=== PATIENT | female | born 1955 | race Caucasian/White ===

== ENCOUNTER 2018-03-20 15:39 | Emergency (ER) | payer OTHER ==
[~2018-03-20] VITALS: Ht 154.9 cm; Wt 63.5 kg
--- OUTSIDE RECORDS SUMMARY | 2018-03-20 15:43 | XMS REPORT | Summary of Care ---
Author Organization Unknown Address Unknown Phone Unavailable Encounter JOE Jeter(THOMAS) [id number] Date(s): 06/01/14 - 06/02/14 [facility] [address] [place], [place] [id number] [place] [address] Discharge Diagnosis: Avascular necrosis of femur head, left Discharge Diagnosis: Depression Discharge Disposition: Home Physician Attending: Venancio Hodge MD Reason for Visit HIP PAIN DUE TO FALL Vital Signs 1 2 3 Most recent to oldest [Reference Range]: 154.94 cm (06/01/14 10:00 PM) Height 97.5 DegF (06/02/14 7:38 AM) 98.4 DegF (06/02/14 4:30 AM) 98.5 DegF (06/02/14 2:30 AM) Temperature Oral [96.4-99.1 DegF] 112 mmHg (06/02/14 7:38 AM) 107 mmHg (06/02/14 4:30 AM) 115 mmHg (06/02/14 3:30 AM) Systolic Blood Pressure [90-140 mmHg] 67 mmHg (06/02/14 7:38 AM) 67 mmHg (06/02/14 4:30 AM) 69 mmHg (06/02/14 3:30 AM) Diastolic Blood Pressure [60-90 mmHg] 20 BRMIN (06/02/14 7:38 AM) 18 BRMIN (06/02/14 4:30 AM) 18 BRMIN (06/02/14 3:30 AM) Respiratory Rate [14-20 BRMIN] 98 bpm (06/02/14 7:38 AM) 102 bpm *HI* (06/02/14 4:30 AM) 102 bpm *HI* (06/02/14 3:30 AM) Peripheral Pulse Rate [60-100 bpm] 58.182 kg (06/01/14 10:00 PM) Weight 24.24 m2 (06/01/14 10:00 PM) Body Mass Index Problem List Condition Effective Dates Status Health Status Informant Back pain(Confirmed) Active Fibromyalgia(Confirm Active ed) Hip pain(Confirmed) Active Scabies(Confirmed) Resolved Allergies, Adverse Reactions, Alerts Substance Reaction Severity Status Flexeril Active Medications Ativan 1 mg, 1 tab, Route: PO, Drug form: TAB, ONCE, Dosing Weight 58.182, kg, Priority : STAT, Start date: 06/01/14 22:29:00, Stop date: 06/01/14 22:29:00 Notes: (Same as: Ativan) Start Date: 06/01/14 Stop Date: 06/02/14 Status: Completed NS 1,000 mL 1,000 mL, Rate: 100 ml/hr, Infuse over: 10 hr, Route: IV, Dosing Weight 58.182 k g, Total Volume: 1,000, Start date: 06/01/14 22:29:00, Duration: 30 day, Stop da te: 07/01/14 22:28:00 Start Date: 06/01/14 Stop Date: 06/02/14 Status: Discontinued Ultram 50 mg oral tablet 50 mg=1 tab, PO, Q4H, pain, # 20 tab, 0 Refill(s) Start Date: 06/02/14 Status: Ordered Results ELECTROLYTES Most recent to 1 oldest [Reference Range]: Sodium Lvl [135-145 138 mEq/L mEq/L] (06/02/14 12:07 AM) Potassium Lvl 4.0 mEq/L [3.5-5.1 mEq/L] (06/02/14 12:07 AM) Chloride Lvl [95-109 105 mEq/L mEq/L] (06/02/14 12:07 AM) CO2 [24-32 mEq/L] 29 mEq/L (06/02/14 12:07 AM) AGAP [10.0-20.0 8.0 mEq/L mEq/L] *LOW* (06/02/14 12:07 AM) CHEM PANEL Most recent to 1 oldest [Reference Range]: Creatinine Lvl 0.9 mg/dL [0.5-1.4 mg/dL] (06/02/14 12:07 AM) eGFR 71 mL/min/1.73m2 1 *NA* (06/02/14:07 AM) BUN [7-22 mg/dL] 10 mg/dL (06/02/14 12:07 AM) B/C Ratio [6-25] 11 (06/02/14:07 AM) Glucose Lvl [70-99 100 mg/dL 2 mg/dL] *HI* (06/02/14 AM) Total Protein 7.1 g/dL [6.4-8.4 g/dL] (06/02/1407 AM) Albumin Lvl [3.5-5.0 3.4 g/dL g/dL] *LOW* (06/02/14 AM) Globulin [2.0-4.0 3.7 g/dL g/dL] (06/02/14:07 AM) A/G Ratio [0.7-1.6] 0.9 (06/02/1407 AM) Calcium Lvl 9.1 mg/dL [8.5-10.5 mg/dL] (06/02/14:07 AM) ALT [0-65 unit/L] 23 unit/L (06/02/14:07 AM) AST [0-37 unit/L] 20 unit/L (06/02/14:07 AM) Alk Phos [39-136 91 unit/L unit/L] (06/02/14:07 AM) Bili Total [0.2-1.3 0.8 mg/dL mg/dL] (06/02/14 12:07 AM) 1Result Comment: The eGFR is calculated using the CKD-EPI formula. In most young, healthy individuals the eGFR will be >90 mL/min/1.73m2. The eGFR declines with age. An eGFR of 60-89 may be normal in some populations, particularly the elderly, for whom the CKD-EPI formula has not been extensively validated. Use of the eGFR is not recommended in the following populations: Individuals with unstable creatinine concentrations, including patients and those with serious co-morbid conditions. Patients with extremes in muscle mass or diet. The data above are obtained from the National Kidney Disease Education Program ( NKDEP) which additionally recommends that when the eGFR is used in patients with extremes of body mass index for purposes of drug dosing, the eGFR should be mul tiplied by the estimated BMI. 2Interpretive Data: Adult reference range values reflect the clinical guidelines of the [place] [employer]. THYROID PANEL Most recent to 1 oldest [Reference Range]: TSH [0.360-3.740 1.090 uIU/mL uIU/mL] (06/02/14 12:07 AM) DRUG SCREEN Most recent to 1 oldest [Reference Range]: U Amph Scr Positive [Negative] *ABN* (06/02/14 6:59 AM) U Keerthi Scr Negative [Negative] *NA* (06/02/14 6:59 AM) U Benzodia Scr Positive [Negative] *ABN* (06/02/14 6:59 AM) U Cocaine Scr Negative [Negative] *NA* (06/02/14 6:59 AM) U Opiate Scr Negative [Negative] *NA* (06/02/14 6:59 AM) U Phencyc Scr Negative [Negative] *NA* (06/02/14 6:59 AM) U Cannab Scr Negative [Negative] *NA* (06/02/14 6:59 AM) UDS Note See Note 3 (06/02/14 6:59 AM) 3Interpretive Data: Drugs reported as positive have not been confirmed by a second method and should be used for medical purposes only. To order confirmation, contact laboratory. note: Below are cut-off concentrations for all urine drugs of abuse performed in the laboratory. Some drugs listed in the table may not be included in this panel. Description Cut-off concentration Amphetamine 1000 ng/mL Barbiturates 200 ng/mL Benzodiazepines 300 ng/mL Cocaine metabolites 300 ng/mL Opiates 300 ng/mL Phencyclidine 25 ng/mL Propoxyphene 300 ng/mL Marijuana metabolites 50 ng/mL Methadone 300 ng/mL Urine alcohol 20 mg/dL TOXICOLOGY Most recent to 1 oldest [Reference Range]: Etoh (%) <.003 % 4 *NA* (06/02/14 12:07 AM) Ethanol Lvl <3 mg/dL 5 *NA* (06/02/14 12:07 AM) 4Interpretive Data: Ethanol testing results should be used for medical purposes only. Negative Range: <0.003% Toxic Range: >0.25% 5Interpretive Data: Negative Range: <3 mg/dL Toxic Range: >250 mg/dL URINE AND STOOL Most recent to 1 oldest [Reference Range]: UA Turbidity [Clear] Clear (06/02/14 6:59 AM) UA Color [Yellow] Yellow *NA* (06/02/14 6:59 AM) UA pH [5.0-8.0] 6.5 (06/02/14 6:59 AM) UA Spec Grav 1.015 [<=1.030] (06/02/14 6:59 AM) UA Glucose Negative [Negative] (06/02/14 6:59 AM) UA Blood [Negative] Trace *ABN* (06/02/14 6:59 AM) UA Ketones Negative [Negative] *NA* (06/02/14 6:59 AM) UA Protein Negative [Negative] (06/02/14 6:59 AM) UA Urobilinogen 0.2 EU/dL [0.1-1.0 EU/dL] (06/02/14 6:59 AM) UA Bili [Negative] Negative *NA* (06/02/14 6:59 AM) UA Leuk Est Negative [Negative] (06/02/14 6:59 AM) UA Nitrite Negative [Negative] (06/02/14 6:59 AM) UA WBC [0-5 /HPF] 0-2 /HPF (06/02/14 6:59 AM) UA RBC [0-2 /HPF] 0-2 /HPF (06/02/14 6:59 AM) UA Bacteria [None Occasional /HPF Seen /HPF] (06/02/14 6:59 AM) UA Sq Epi [Few /LPF] Occasional /LPF (06/02/14 6:59 AM) Micro? Performed (06/02/14 6:59 AM) HEMATOLOGY Most recent to 1 oldest [Reference Range]: WBC [3.7-10.4 K/CMM] 12.3 K/CMM *HI* (06/02/14 12:07 AM) RBC [4.20-5.40 4.39 M/CMM M/CMM] (06/02/14:07 AM) Hgb [12.0-16.0 g/dL] 14.0 g/dL (06/02/1407 AM) Hct [36.0-48.0 %] 41.8 % (06/02/14 AM) MCV [80.0-98.0 fL] 95.0 fL (06/02/14 AM) MCH [27.0-31.0 pg] 31.9 pg *HI* (06/02/14 AM) MCHC [32.0-36.0 33.6 g/dL g/dL] (06/02/14 AM) RDW [11.5-14.5 %] 14.0 % (06/02/14 AM) Platelet [133-450 253 K/CMM K/CMM] (06/02/1407 AM) MPV [7.4-10.4 fL] 8.5 fL (06/02/1407 AM) Segs [45.0-75.0 %] 69.4 % (06/02/14:07 AM) Lymphocytes 14.1 % [20.0-40.0 %] *LOW* (06/02/14 AM) Monocytes [2.0-12.0 9.3 % %] (06/02/1407 AM) Eosinophils [0.0-4.0 6.4 % %] *HI* (06/02/14: AM) Basophils [0.0-1.0 0.8 % %] (06/02/14:07 AM) Segs-Bands # 8.5 K/CMM [1.5-8.1 K/CMM] *HI* (06/02/14:07 AM) Lymphocytes # 1.7 K/CMM [1.0-5.5 K/CMM] (06/02/14 12:07 AM) Monocytes # [0.0-0.8 1.1 K/CMM K/CMM] *HI* (06/02/14:07 AM) Eosinophils # 0.8 K/CMM [0.0-0.5 K/CMM] *HI* (06/02/14 12:07 AM) Basophils # [0.0-0.2 0.1 K/CMM K/CMM] (06/02/14 12:07 AM) Medications Administered During Your Visit No data available for this section Immunizations No data available for this section Social History Social History Type Response Alcohol Use: Current, Type: Beer, Type: Wine, Type: Liquor, Frequency: 1-2 times per month Smoking Status Current every day smoker, Type: Cigarettes, Exposure to Tobacco Smoke Patient smokes, Cigarette Smoking Last 365 Days Yes, Reg Smoking Cessation Counseling Yes
--- OUTSIDE RECORDS SUMMARY | 2018-03-20 15:43 | XMS REPORT | Summary of Care ---
Author Organization Unknown Address Unknown Phone Unavailable Encounter JOE Jeter(THOMAS) [id number] Date(s): 02/23/14 - 02/23/14 [facility] [address] [place], [place] [id number] [place] [address] Discharge Diagnosis: Acute anxiety Discharge Diagnosis: Chronic left hip pain Discharge Disposition: Home Physician Attending: Venancio Hodge MD Reason for Visit LEFT SIDED HIP PAIN/FALL Vital Signs Most recent to 1 2 oldest [Reference Range]: Height 162.56 cm (02/23/14 3:58 AM) Temperature Oral 98.5 DegF 98.4 DegF [96.4-99.1 DegF] (02/23/14 7:20 AM) (02/23/14 3:58 AM) Systolic Blood 120 mmHg 116 mmHg Pressure [90-140 (02/23/14 7:20 AM) (02/23/14 3:58 AM) mmHg] Diastolic Blood 34 mmHg 82 mmHg Pressure [60-90 *LOW* (02/23/14 3:58 AM) mmHg] (02/23/14 7:20 AM) Respiratory Rate 18 BRMIN 20 BRMIN [14-20 BRMIN] (02/23/14 7:20 AM) (02/23/14 3:58 AM) Peripheral Pulse 86 bpm 93 bpm Rate [60-100 bpm] (02/23/14 7:20 AM) (02/23/14 3:58 AM) Weight 59.091 kg (02/23/14 3:58 AM) Body Mass Index 22.36 m2 (02/23/14 3:58 AM) Problem List Condition Effective Dates Status Health Status Informant Back pain(Confirmed) Active Fibromyalgia(Confirm Active ed) Hip pain(Confirmed) Active Scabies(Confirmed) Resolved Allergies, Adverse Reactions, Alerts Substance Reaction Severity Status Flexeril Active Medications ketorolac 60 mg, Route: IM, Drug form: INJ, ONCE, Dosing Weight 59.091, kg, Priority: STAT , Start date: 02/23/14 7:01:00, Stop date: 02/23/14 7:01:00 Start Date: 02/23/14 Stop Date: 02/23/14 Status: Completed morphine Sulfate 4 mg, Route: IVP, Drug form: INJ, ONCE, Dosing Weight 59.091, kg, Priority: STAT , Start date: 02/23/14 4:51:00, Stop date: 02/23/14 4:51:00 Start Date: 02/23/14 Stop Date: 02/23/14 Status: Discontinued Medications Administered During Your Visit No data [...]
--- OUTSIDE RECORDS SUMMARY | 2018-03-20 15:43 | XMS REPORT | Summary of Care ---
Author Organization Unknown Address Unknown Phone Unavailable Encounter JOE Jeter(THOMAS) [id number] Date(s): 12/20/13 - 12/21/13 [facility] [address] [place], [place] [address] - [facility] Discharge Diagnosis: Chronic left hip pain Discharge Disposition: Home Physician Attending: Alex Connelly MD Reason for Visit PAIN Vital Signs Most recent to 1 2 oldest [Reference Range]: Temperature Oral 98.3 DegF 98.3 DegF [96.4-99.1 DegF] (12/21/13 3:10 AM) (12/20/13 10:43 PM) Systolic Blood 132 mmHg 128 mmHg Pressure [90-140 (12/21/13 3:10 AM) (12/20/13 10:43 PM) mmHg] Diastolic Blood 65 mmHg 75 mmHg Pressure [60-90 (12/21/13 3:10 AM) (12/20/13 10:43 PM) mmHg] Respiratory Rate 18 BRMIN 22 BRMIN [14-20 BRMIN] (12/21/13 3:10 AM) *HI* (12/20/13 10:43 PM) Peripheral Pulse 88 bpm 90 bpm Rate [60-100 bpm] (12/21/13 3:10 AM) (12/20/13 10:43 PM) Weight 56.818 kg (12/20/13 10:43 PM) Problem List Condition Effective Dates Status Health Status Informant Back pain(Confirmed) Resolved Fibromyalgia(Confirm Resolved ed) Hip pain(Confirmed) Resolved Scabies(Confirmed) Resolved Allergies, Adverse Reactions, Alerts Substance Reaction Severity Status Flexeril Active Medications morphine Sulfate 4 mg, Route: IM, ONCE, Dosing Weight 56.818, kg, Priority: STAT, Start date: 07/31 2:14:00, Stop date: 12/21/13 2:14:00 Start Date: 12/21/13 Stop Date: 12/21/13 Status: Completed Rake 10/325 oral tablet 1 tab, PO, Q6H, for pain, # 12 tab, 0 Refill(s) Start Date: 12/21/13 Status: Ordered Medications Administered During Your Visit No data [...]
--- OUTSIDE RECORDS SUMMARY | 2018-03-20 15:43 | XMS REPORT | Summary of Care ---
Author Author [facility] Organization [facility] Address Unknown Phone Unavailable Encounter HQ Steffany(THOMAS) [id number] Date(s): 07/29/15 - 07/31/15 [facility] [address] [place] [address]- Discharge Disposition: Home Attending Physician: Clifford Cervantes Admitting Physician: Clifford Cervantes Vital Signs 1 2 3 Most recent to oldest [Reference Range]: 155 cm (07/29/15 4:18 PM) 154.94 cm (07/29/15 7:36 AM) Height 98.2 DegF (07/31/15 7:49 AM) 97.8 DegF (07/31/15 4:00 AM) 98.0 DegF (07/31/15 12:00 AM) Temperature Oral [96.4-99.1 DegF] 104/66 mmHg (07/31/15 7:49 AM) 107/71 mmHg (07/31/15 4:00 AM) 113/70 mmHg (07/31/15 12:00 AM) Blood Pressure [90-140/60-90 mmHg] 16 BRMIN (07/31/15 7:49 AM) 16 BRMIN (07/31/15 4:00 AM) 16 BRMIN (07/31/15 12:00 AM) Respiratory Rate [14-20 BRMIN] 74 bpm (07/31/15 7:49 AM) 72 bpm (07/31/15 4:00 AM) 72 bpm (07/31/15 12:00 AM) Peripheral Pulse Rate [60-100 bpm] 49.5 kg (07/29/15 4:18 PM) 49.545 kg (07/29/15 7:36 AM) Weight 20.6 m2 (07/29/15 4:18 PM) 20.64 m2 (07/29/15 7:36 AM) Body Mass Index Problem List Condition Effective Dates Status Health Status Informant Arthritis(Confirmed) Resolved Back pain(Confirmed) Active Diverticula(Confirme Resolved d) Fibromyalgia(Confirm Active ed) Hip pain(Confirmed) Active Scabies(Confirmed) Resolved Allergies, Adverse Reactions, Alerts Substance Reaction Severity Status Flexeril Active Medications acetaminophen-hydrocodone 325 mg-5 mg oral tablet 1 tab, Route: PO, Drug Form: TAB, Dosing Weight 49.545, kg, Q4H, PRN Pain Score 4-6, Start date: 07/29/15 14:43:00 CDT, Duration: 30 day, Stop date: 08/28/15 14 :42:00 CDT Notes: (Same as: [place] 325/5) Do not exceed 4gm/day of acetaminophen. Start Date: 07/29/15 Stop Date: 07/31/15 Status: Discontinued Ambien 5 mg, 1 tab, Route: PO, Drug form: TAB, Bedtime, Dosing Weight 49.5, kg, PRN Sle ep, Start date: 07/31/15 7:41:00 CDT, Duration: 30 day, Stop date: 08/30/15 7:40 :00 CDT Notes: (Same As: Ambien) Start Date: 07/31/15 Stop Date: 07/31/15 Status: Discontinued Dilaudid 0.5 mg, Route: IVP, ONCE, Dosing Weight 49.545, kg, Priority: STAT, Start date: 07/29/15 12:04:00 CDT, Stop date: 07/29/15 12:04:00 CDT Start Date: 07/29/15 Stop Date: 07/29/15 Status: Completed Dilaudid 0.5 mg, Route: IVP, ONCE, Dosing Weight 49.545, kg, Priority: STAT, Start date: 07/29/15 9:43:00 CDT, Stop date: 07/29/15 9:43:00 CDT Start Date: 07/29/15 Stop Date: 07/29/15 Status: Completed Lyrica 125 mg, 5 cap, Route: PO, Drug form: CAP, BID, Dosing Weight 49.5, kg, Start lakisha e: 07/31/15 9:00:00 CDT, Duration: 30 day, Stop date: 08/29/15 21:00:00 CDT Notes: (Same as: Lyrica) Start Date: 07/31/15 Stop Date: 07/31/15 Status: Discontinued morphine Sulfate 4 mg, 2 mL, Route: IVP, Drug form: INJ, Q4H, Dosing Weight 49.545, kg, PRN Pain Score 7-10, Start date: 07/29/15 14:43:00 CDT, Duration: 30 day, Stop date: 08/17 05/04 14:42:00 CDT Notes: (Same as:MORPhine Sulfate) Start Date: 07/29/15 Stop Date: 07/31/15 Status: Discontinued nicotine 21 mg, 1 patch, Route: TOP, Drug form: ERFILM, Daily, Dosing Weight 49.545, kg, Start date: 07/30/15 14:55:00 CDT, Duration: 30 day, Stop date: 08/29/15 9:00:00 CDT Notes: (Same as: Habitrol)"Remove old patch before application of new patch"WAST E: F/P - P Waste Black; E - P Waste Black Start Date: 07/30/15 Stop Date: 07/31/15 Status: Discontinued ondansetron 4 mg, 2 mL, Route: IVP, Drug form: INJ, Q6H, Dosing Weight 49.545, kg, PRN Nause a & Vomiting, Start date: 07/29/15 14:43:00 CDT, Duration: 30 day, Stop date: 08/28/15 14:42:00 CDT Notes: (Same as: Rosanna) MEDICATION WASTE Product Size: 4 mgProduct Was chelo: ___ mg Start Date: 07/29/15 Stop Date: 07/31/15 Status: Discontinued oxyCODONE 10 mg extended release 10 mg, 1 tab, Route: PO, Drug form: ERTAB, Q12H, Start date: 07/31/15 9:00:00 CD T, Duration: 30 day, Stop date: 08/29/15 21:00:00 CDT Notes: Do not crush or chew.(Same as: OxyContin) Start Date: 07/31/15 Stop Date: 07/31/15 Status: Discontinued oxyCODONE 10 mg oral tablet 10 mg=1 tab, PO, BID, 0 Refill(s) Start Date: 07/29/15 Status: Ordered pneumococcal 23-valent vaccine 0.5 mL, Route: IM, Drug Form: INJ, ONCALL, Start date: 07/29/15 17:00:00 CDT, Chinedu ration: 1 doses or times Notes: (Same as: Pneumovax 23) Refrigerate Start Date: 07/29/15 Stop Date: 07/31/15 Status: Discontinued Results ELECTROLYTES Most recent to 1 oldest [Reference Range]: Sodium Lvl [135-145 141 mEq/L mEq/L] (07/29/15 8:02 AM) Potassium Lvl 3.9 mEq/L [3.5-5.1 mEq/L] (07/29/15 8:02 AM) Chloride Lvl [95-109 108 mEq/L mEq/L] (07/29/15 8:02 AM) CO2 [24-32 mEq/L] 29 mEq/L (07/29/15 8:02 AM) AGAP [10.0-20.0 7.9 mEq/L mEq/L] *LOW* (07/29/15 8:02 AM) CHEM PANEL Most recent to 1 oldest [Reference Range]: Creatinine Lvl 0.72 mg/dL [0.50-1.40 mg/dL] (07/29/15 8:02 AM) eGFR 92 mL/min/1.73m2 1 *NA* (07/29/15 8:02 AM) BUN [7-22 mg/dL] 6 mg/dL *LOW* (07/29/15 8:02 AM) B/C Ratio [6-25] 8 (07/29/15 8:02 AM) Glucose Lvl [70-99 101 mg/dL mg/dL] *HI* (07/29/15 8:02 AM) Total Protein 6.7 g/dL [6.4-8.4 g/dL] (07/29/15 8:02 AM) Albumin Lvl [3.5-5.0 3.5 g/dL g/dL] (07/29/15 8:02 AM) Globulin [2.0-4.0 3.2 g/dL g/dL] (07/29/15 8:02 AM) A/G Ratio [0.7-1.6] 1.1 (07/29/15 8:02 AM) Calcium Lvl 8.9 mg/dL [8.5-10.5 mg/dL] (07/29/15 8:02 AM) ALT [0-65 unit/L] 15 unit/L (07/29/15 8:02 AM) AST [0-37 unit/L] 13 unit/L (07/29/15 8:02 AM) Alk Phos [39-136 76 unit/L unit/L] (07/29/15 8:02 AM) Bili Total [0.2-1.3 0.9 mg/dL mg/dL] (07/29/15 8:02 AM) 1Result Comment: The eGFR is calculated [...] be mul tiplied by the estimated BMI. URINE AND STOOL Most recent to 1 oldest [Reference Range]: UA Turbidity [Clear] Clear (07/29/15 9:39 AM) UA Color Ltyellow *NA* (07/29/15 9:39 AM) UA pH [5.0-8.0] 7.0 (07/29/15 9:39 AM) UA Spec Grav 1.004 [<=1.030] (07/29/15 9:39 AM) UA Glucose [Negative Negative mg/dL mg/dL] *NA* (07/29/15 9:39 AM) UA Blood [Negative] Negative (07/29/15 9:39 AM) UA Ketones [Negative Negative mg/dL mg/dL] *NA* (07/29/15 9:39 AM) UA Protein [Negative Negative mg/dL mg/dL] (07/29/15 9:39 AM) UA Urobilinogen <=1.0 mg/dL [0.1-1.0 mg/dL] *NA* (07/29/15 9:39 AM) UA Bili [Negative] Negative *NA* (07/29/15 9:39 AM) UA Leuk Est Negative [Negative] (07/29/15 9:39 AM) UA Nitrite Negative [Negative] (07/29/15 9:39 AM) UA WBC [0-5 /HPF] 1 /HPF (07/29/15 9:39 AM) UA RBC [0-2 /HPF] <1 /HPF (07/29/15 9:39 AM) UA Bacteria [None Occasional /HPF Seen /HPF] *NA* (07/29/15 9:39 AM) UA Sq Epi [Few /LPF] Occasional /LPF *NA* (07/29/15 9:39 AM) HEMATOLOGY Most recent to 1 oldest [Reference Range]: WBC [3.7-10.4 K/CMM] 4.7 K/CMM (07/29/15 8:02 AM) RBC [4.20-5.40 4.16 M/CMM M/CMM] *LOW* (07/29/15 8:02 AM) Hgb [12.0-16.0 g/dL] 13.9 g/dL (07/29/15 8:02 AM) Hct [36.0-48.0 %] 42.1 % (07/29/15 8:02 AM) MCV [80.0-98.0 fL] 101.1 fL *HI* (07/29/15 8:02 AM) MCH [27.0-31.0 pg] 33.3 pg *HI* (07/29/15 8:02 AM) MCHC [32.0-36.0 32.9 g/dL g/dL] (07/29/15 8:02 AM) RDW [11.5-14.5 %] 13.4 % (07/29/15 8:02 AM) Platelet [133-450 259 K/CMM K/CMM] (07/29/15 8:02 AM) MPV [7.4-10.4 fL] 9.1 fL (07/29/15 8:02 AM) Segs [45.0-75.0 %] 53.6 % (07/29/15 8:02 AM) Lymphocytes 36.9 % [20.0-40.0 %] (07/29/15 8:02 AM) Monocytes [2.0-12.0 7.4 % %] (07/29/15 8:02 AM) Eosinophils [0.0-4.0 1.9 % %] (07/29/15 8:02 AM) Basophils [0.0-1.0 0.2 % %] (07/29/15 8:02 AM) Segs-Bands # 2.5 K/CMM [1.5-8.1 K/CMM] (07/29/15 8:02 AM) Lymphocytes # 1.7 K/CMM [1.0-5.5 K/CMM] (07/29/15 8:02 AM) Monocytes # [0.0-0.8 0.3 K/CMM K/CMM] (07/29/15 8:02 AM) Eosinophils # 0.1 K/CMM [0.0-0.5 K/CMM] (07/29/15 8:02 AM) Macrocyte [None 1+ Seen] *ABN* (07/29/15 8:02 AM) Immunizations No data available for this section Procedures No data available for this section Social History Social History Type Response Alcohol Current, Type Beer, Wine, Liquor. Frequency: 1-2 times per month. Smoking Status Current every day smoker; Type: Cigarettes; Tobacco use per day: .5; Exposure to Tobacco Smoke Patient smokes; Cigarette Smoking Last 365 Days Yes; Reg Smoking Cessation Counseling Yes Assessment and Plan No data available for this section
--- OUTSIDE RECORDS SUMMARY | 2018-03-20 15:43 | XMS REPORT | Summary of Care ---
Author Author [facility] Organization [facility] Address Unknown Phone Unavailable Encounter JOE Jeter(THOMAS) [id number] Date(s): 07/23/15 - 07/24/15 [facility] [address] [place] [address]- Discharge Diagnosis: Avascular necrosis of hip Discharge Diagnosis: Abdominal pain Discharge Diagnosis: Diverticulosis Discharge Disposition: Home Attending Physician: Jennifer Garcia DO Vital Signs 1 2 3 Most recent to oldest [Reference Range]: 154.94 cm (07/23/15 10:56 PM) Height 98.2 DegF (07/24/15 5:34 AM) 98.2 DegF (07/24/15 4:46 AM) 98 DegF (07/24/15 2:14 AM) Temperature Oral [96.4-99.1 DegF] 116/82 mmHg (07/24/15 5:34 AM) 118/84 mmHg (07/24/15 4:46 AM) 120/82 mmHg (07/24/15 2:14 AM) Blood Pressure [90-140/60-90 mmHg] 18 BRMIN (07/24/15 5:34 AM) 18 BRMIN (07/24/15 4:46 AM) 18 BRMIN (07/24/15 2:14 AM) Respiratory Rate [14-20 BRMIN] 84 bpm (07/24/15 5:34 AM) 86 bpm (07/24/15 4:46 AM) 86 bpm (07/24/15 2:14 AM) Peripheral Pulse Rate [60-100 bpm] 50 kg (07/23/15 10:56 PM) Weight 20.83 m2 (07/23/15 10:56 PM) Body Mass Index Problem List Condition Effective Dates Status Health Status Informant Back pain(Confirmed) Active Fibromyalgia(Confirm Active ed) Hip pain(Confirmed) Active Scabies(Confirmed) Resolved Allergies, Adverse Reactions, Alerts Substance Reaction Severity Status Flexeril Active Medications morphine Sulfate 2 mg, 1 mL, Route: IVP, Drug form: INJ, ONCE, Dosing Weight 50, kg, Priority: ST AT, Start date: 07/24/15 4:42:00, Stop date: 07/24/15 4:42:00 Notes: (Same as:MORPhine Sulfate) Start Date: 07/24/15 Stop Date: 07/24/15 Status: Completed morphine Sulfate 4 mg, 2 mL, Route: IVP, Drug form: INJ, ONCE, Dosing Weight 50, kg, Priority: ST AT, Start date: 07/24/15 0:55:00, Stop date: 07/24/15 0:55:00 Notes: (Same as:MORPhine Sulfate) Start Date: 07/24/15 Stop Date: 07/24/15 Status: Completed Saline Flush 0.9% 10 mL, Route: IVP, Drug Form: INJ, Dosing Weight 58.182, kg, PRN, PRN Line Flush , Start date: 07/23/15 22:57:00, Duration: 30 day, Stop date: 08/22/15 22:56:00 Notes: (Same as: BD Posiflush) Start Date: 07/23/15 Stop Date: 07/24/15 Status: Discontinued Sodium Chloride 0.9% (Bolus) IV 1,000 mL, 1,000 ml/hr, Infuse Over: 1 hr, Route: IV, 1,000, Drug form: INJ, ONCE , Priority: STAT, Dosing Weight 50 kg, Start date: 07/24/15 0:55:00, Duration: 1 doses or times, Stop date: 07/24/15 0:55:00 Start Date: 07/24/15 Stop Date: 07/24/15 Status: Completed Tylenol with Codeine #3 oral tablet 1 - 2 tab, PO, Q4H, PRN Pain, X 3 day, # 20 tab, 0 Refill(s) Start Date: 07/24/15 Stop Date: 07/27/15 Status: Ordered Results ELECTROLYTES Most recent to 1 oldest [Reference Range]: Sodium Lvl [135-145 142 mEq/L mEq/L] (07/24/15 12:09 AM) Potassium Lvl 3.9 mEq/L [3.5-5.1 mEq/L] (07/24/15 12:09 AM) Chloride Lvl [95-109 107 mEq/L mEq/L] (07/24/15 12:09 AM) CO2 [24-32 mEq/L] 31 mEq/L (07/24/15 12:09 AM) AGAP [10.0-20.0 7.9 mEq/L mEq/L] *LOW* (07/24/1509 AM) CHEM PANEL Most recent to 1 oldest [Reference Range]: Creatinine Lvl 0.57 mg/dL [0.50-1.40 mg/dL] (07/24/15 12:09 AM) eGFR 102 mL/min/1.73m2 1 *NA* (07/24/15:09 AM) BUN [7-22 mg/dL] 9 mg/dL (07/24/15 12:09 AM) B/C Ratio [6-25] 16 (07/24/15 12:09 AM) Glucose Lvl [70-99 88 mg/dL mg/dL] (07/24/15 12:09 AM) Total Protein 5.8 g/dL [6.4-8.4 g/dL] *LOW* (07/24/15 12:09 AM) Albumin Lvl [3.5-5.0 3.0 g/dL g/dL] *LOW* (07/24/15:09 AM) Globulin [2.0-4.0 2.8 g/dL g/dL] (07/24/15 12:09 AM) A/G Ratio [0.7-1.6] 1.1 (07/24/15 12:09 AM) Calcium Lvl 8.8 mg/dL [8.5-10.5 mg/dL] (07/24/15 12:09 AM) ALT [0-65 unit/L] 16 unit/L (07/24/15 12:09 AM) AST [0-37 unit/L] 15 unit/L (07/24/15 12:09 AM) Alk Phos [39-136 68 unit/L unit/L] (07/24/15 12:09 AM) Bili Total [0.2-1.3 0.3 mg/dL mg/dL] (07/24/15 12:09 AM) Lipase Lvl [73-393 66 unit/L unit/L] *LOW* (07/24/15 12:09 AM) 1Result Comment: The eGFR is calculated [...] 1 oldest [Reference Range]: UA Turbidity [Clear] Slight *ABN* (07/24/15 2:26 AM) UA Color Ltyellow *NA* (07/24/15 2:26 AM) UA pH [5.0-8.0] 6.0 (07/24/15 2:26 AM) UA Spec Grav 1.009 [<=1.030] (07/24/15 2:26 AM) UA Glucose [Negative Negative mg/dL mg/dL] *NA* (07/24/15 2:26 AM) UA Blood [Negative] Negative (07/24/15 2:26 AM) UA Ketones [Negative Negative mg/dL mg/dL] *NA* (07/24/15 2:26 AM) UA Protein [Negative Negative mg/dL mg/dL] (07/24/15 2:26 AM) UA Urobilinogen <=1.0 mg/dL [0.1-1.0 mg/dL] *NA* (07/24/15 2:26 AM) UA Bili [Negative] Negative *NA* (07/24/15 2:26 AM) UA Leuk Est Moderate [Negative] *ABN* (07/24/15 2:26 AM) UA Nitrite Negative [Negative] (07/24/15 2:26 AM) UA WBC [0-5 /HPF] 13 /HPF *HI* (07/24/15 2:26 AM) UA RBC [0-2 /HPF] 9 /HPF *HI* (07/24/15 2:26 AM) UA Sq Epi [Few /LPF] Many /LPF *ABN* (07/24/15 2:26 AM) UA Hyal Cast [0-2 3 /LPF /LPF] *HI* (07/24/15 2:26 AM) HEMATOLOGY Most recent to 1 oldest [Reference Range]: WBC [3.7-10.4 K/CMM] 6.5 K/CMM (07/24/15 12:09 AM) RBC [4.20-5.40 3.77 M/CMM M/CMM] *LOW* (07/24/15 12:09 AM) Hgb [12.0-16.0 g/dL] 12.4 g/dL (07/24/15 12:09 AM) Hct [36.0-48.0 %] 38.6 % (07/24/15 12:09 AM) MCV [80.0-98.0 fL] 102.3 fL *HI* (07/24/15 12:09 AM) MCH [27.0-31.0 pg] 32.9 pg *HI* (07/24/15 12:09 AM) MCHC [32.0-36.0 32.2 g/dL g/dL] (07/24/15 12:09 AM) RDW [11.5-14.5 %] 14.0 % (07/24/15 12:09 AM) Platelet [133-450 212 K/CMM K/CMM] (07/24/15 12:09 AM) MPV [7.4-10.4 fL] 8.8 fL (07/24/15 12:09 AM) Segs [45.0-75.0 %] 44.8 % *LOW* (07/24/15 12:09 AM) Lymphocytes 43.2 % [20.0-40.0 %] *HI* (07/24/15 12:09 AM) Monocytes [2.0-12.0 9.5 % %] (07/24/15 12:09 AM) Eosinophils [0.0-4.0 1.9 % %] (07/24/15 12:09 AM) Basophils [0.0-1.0 0.6 % %] (07/24/15 12:09 AM) Segs-Bands # 2.9 K/CMM [1.5-8.1 K/CMM] (07/24/15 12:09 AM) Lymphocytes # 2.8 K/CMM [1.0-5.5 K/CMM] (07/24/15 12:09 AM) Monocytes # [0.0-0.8 0.6 K/CMM K/CMM] (07/24/15 12:09 AM) Eosinophils # 0.1 K/CMM [0.0-0.5 K/CMM] (07/24/15 12:09 AM) Macrocyte [None 1+ Seen] *ABN* (07/24/15 12:09 AM) Immunizations No data available for this [...]
--- OUTSIDE RECORDS SUMMARY | 2018-03-20 15:43 | XMS REPORT | Summary of Care ---
Author Organization Unknown Address Unknown Phone Unavailable Encounter JOE Jeter(THOMAS) [id number] Date(s): 11/26/13 - 11/26/13 [facility] [address] [place], [place] [address] - [facility] Discharge Diagnosis: Hip pain, chronic Discharge Disposition: Home Physician Attending: Jordan Rodriguez MD Reason for Visit LEFT HIP AND LOWER BACK PAIN Vital Signs 1 2 3 Most recent to oldest [Reference Range]: 165.1 cm (11/26/13 3:27 PM) Height 98.7 DegF (11/26/13 5:51 PM) 98.7 DegF (11/26/13 3:27 PM) Temperature Oral [96.4-99.1 DegF] 122 mmHg (11/26/13 7:03 PM) 120 mmHg (11/26/13 5:51 PM) 128 mmHg (11/26/13 3:27 PM) Systolic Blood Pressure [90-140 mmHg] 72 mmHg (11/26/13 7:03 PM) 71 mmHg (11/26/13 5:51 PM) 82 mmHg (11/26/13 3:27 PM) Diastolic Blood Pressure [60-90 mmHg] 16 BRMIN (11/26/13 7:03 PM) 16 BRMIN (11/26/13 5:51 PM) 18 BRMIN (11/26/13 3:27 PM) Respiratory Rate [14-20 BRMIN] 90 bpm (11/26/13 7:03 PM) 96 bpm (11/26/13 5:51 PM) 108 bpm *HI* (11/26/13 3:27 PM) Peripheral Pulse Rate [60-100 bpm] 59.091 kg (11/26/13 3:27 PM) Weight 21.68 m2 (11/26/13 3:27 PM) Body Mass Index Problem List Condition Effective Dates Status Health Status Informant Back pain(Confirmed) Resolved Hip pain(Confirmed) Resolved Scabies(Confirmed) Resolved Allergies, Adverse Reactions, Alerts Substance Reaction Severity Status Flexeril Active Medications Dilaudid 0.5 mg, 0.5 mL, Route: IM, Drug form: INJ, ONCE, Dosing Weight 59.091, kg, Prior ity: STAT, Start date: 11/26/13 17:56:00, Stop date: 11/26/13 17:56:00 Start Date: 11/26/13 Stop Date: 11/26/13 Status: Completed Dilaudid 0.5 mg, Route: IVP, ONCE, Dosing Weight 59.091, kg, Priority: STAT, Start date: 11/26/13 17:47:00, Stop date: 11/26/13 17:47:00 Start Date: 11/26/13 Stop Date: 11/26/13 Status: Discontinued [place] 10/325 oral tablet 1-2 tab, PO, Q4-6H, Pain, # 10 tab, 0 Refill(s) Start Date: 11/26/13 Stop Date: 12/01/13 Status: Ordered Medications Administered During Your Visit [...]
--- OUTSIDE RECORDS SUMMARY | 2018-03-20 15:43 | XMS REPORT | Summary of Care ---
Author Organization Unknown Address Unknown Phone Unavailable Encounter JOE Jeter(THOMAS) [id number] Date(s): 11/05/13 - 11/09/13 [facility] [id number] [place], [place] [id number] [place] [address] Discharge Disposition: Home Physician Attending: Daniele Andersen DO Physician Admitting: Daniele Andersen DO Reason for Visit L3 COMPRESSION FRACTURE, AVASCULAR NECROSIS OF L HIP Vital Signs 1 2 3 Most recent to oldest [Reference Range]: 154.94 cm (11/05/13 6:09 AM) Height 97.5 DegF (11/09/13 8:00 AM) 97.9 DegF (11/09/13 4:11 AM) 97.7 DegF (11/09/13 12:07 AM) Temperature Oral [96.4-99.1 DegF] 104 mmHg (11/09/13 8:00 AM) 95 mmHg (11/09/13 4:11 AM) 99 mmHg (11/09/13 12:07 AM) Systolic Blood Pressure [90-140 mmHg] 70 mmHg (11/09/13 8:00 AM) 56 mmHg *LOW* (11/09/13 4:11 AM) 59 mmHg *LOW* (11/09/13 12:07 AM) Diastolic Blood Pressure [60-90 mmHg] 18 BRMIN (11/09/13 8:00 AM) 16 BRMIN (11/09/13 4:11 AM) 14 BRMIN (11/09/13 12:07 AM) Respiratory Rate [14-20 BRMIN] 73 bpm (11/09/13 8:00 AM) 73 bpm (11/09/13 4:11 AM) 73 bpm (11/09/13 12:07 AM) Peripheral Pulse Rate [60-100 bpm] 62.727 kg (11/05/13 6:09 AM) Weight 26.13 m2 (11/05/13 6:09 AM) Body Mass Index Problem List Condition Effective Dates Status Health Status Informant Back pain(Confirmed) Resolved Hip pain(Confirmed) Resolved Scabies(Confirmed) Resolved Allergies, Adverse Reactions, Alerts Substance Reaction Severity Status Flexeril Active Medications acetaminophen 650 mg, 20.3 mL, Route: PO, Drug form: LIQ, Q4H, kg, PRN Pain 1-3/Temp > 100.4 F, Start date: 11/05/13 6:09:00, Duration: 30 day, Stop date: 12/05/13 6:08:00 Notes: Max msyuewpnshhgx=5917ci/day (4 gm/day). (Same as: Tylenol) Start Date: 11/05/13 Stop Date: 11/09/13 Status: Discontinued acetaminophen-hydrocodone 325 mg-10 mg oral tablet 1 tab, Route: PO, Drug Form: TAB, kg, Q4H, PRN Pain Score 4-6, Start date: 11/05 6:09:00, Duration: 30 day, Stop date: 12/05/13 6:08:00 Notes: Do not exceed 4gm/day of acetaminophen. (Same as: [place] 325/10) Start Date: 11/05/13 Stop Date: 11/09/13 Status: Discontinued acetaminophen-hydrocodone 325 mg-10 mg oral tablet 1 tab, PO, Q6H, Pain Score 4-6, # 120 tab, 0 Refill(s), given to patient Start Date: 11/09/13 Status: Ordered acetaminophen-hydrocodone 325 mg-5 mg oral tablet 1 tab, Route: PO, Drug Form: TAB, kg, Q4H, PRN Pain Score 1-3, Start date: 11/05 6:09:00, Duration: 30 day, Stop date: 12/05/13 6:08:00 Notes: (Same as: [place] 325/5) Do not exceed 4gm/day of acetaminophen. Start Date: 11/05/13 Stop Date: 11/06/13 Status: Discontinued Ambien 5 mg, 1 tab, Route: PO, Drug form: TAB, Bedtime, kg, PRN Insomnia, Start date: 0 11/05/13 5:28:00, Duration: 30 day, Stop date: 12/05/13 5:27:00 Notes: (Same As: Ambien) Start Date: 11/05/13 Stop Date: 11/09/13 Status: Discontinued Ambien 5 mg, Route: PO, Drug form: TAB, Bedtime, Dosing Weight 62.727, kg, PRN as neede d for sleep, Start date: 11/07/13 10:32:00, Duration: 30 day, Stop date: 4 10:31:00 Start Date: 11/07/13 Stop Date: 11/07/13 Status: Deleted Ambien 5 mg oral tablet 5 mg=1 tab, PO, Bedtime, for sleep, 0 Refill(s) Start Date: 11/06/13 Status: Ordered Ativan 1 mg, Route: IVP, Drug form: INJ, ONCE, Dosing Weight 62.727, kg, PRN Anxiety, P riority: NOW, Start date: 11/05/13 15:33:00 Start Date: 11/05/13 Stop Date: 11/05/13 Status: Completed Benadryl 25 mg, 1 tab, Route: PO, Drug form: TAB, Q6H, Dosing Weight 62.727, kg, PRN as n eeded for itching, Start date: 11/05/13 20:21:00, Duration: 30 day, Stop date: 0 12/05/13 20:20:00 Start Date: 11/05/13 Stop Date: 11/06/13 Status: Discontinued clonazePAM 1 mg, 2 tab, Route: PO, Drug form: TAB, TID, Dosing Weight 62.727, kg, Start lakisha e: 11/09/13 9:00:00, Duration: 30 day, Stop date: 12/08/13 17:00:00 Notes: (Same As: KlonoPIN) Start Date: 11/09/13 Stop Date: 11/09/13 Status: Discontinued clonazePAM 2 mg, 4 tab, Route: PO, Drug form: TAB, TID, Dosing Weight 62.727, kg, Start lakisha e: 11/07/13 13:00:00, Duration: 30 day, Stop date: 12/07/13 9:00:00 Notes: (Same As: KlonoPIN) Start Date: 11/07/13 Stop Date: 11/08/13 Status: Discontinued clonazePAM 2 mg oral tablet 2 mg=1 tab, PO, TID, 0 Refill(s) Start Date: 11/06/13 Status: Ordered cloNIDine 0.1 mg oral tablet 0.1 mg, 1 tab, Route: PO, Drug form: TAB, Q8H, kg, PRN See Nurse's Notes, Start date: 11/05/13 5:28:00, Duration: 30 day, Stop date: 12/05/13 5:27:00, SBP >160 Notes: (Same As: Catapres) Start Date: 11/05/13 Stop Date: 11/09/13 Status: Discontinued Dilaudid 0.2 mg, 0.2 mL, Route: IV, Drug form: INJ, Q4H, Dosing Weight 62.727, kg, PRN Pa in Score 7-10, Start date: 11/06/13 17:24:00, Duration: 30 day, Stop date: 12/06 17:23:00 Start Date: 11/06/13 Stop Date: 11/07/13 Status: Discontinued Dilaudid 1 mg, Route: IM, ONCE, kg, Start date: 11/05/13 2:44:00, Stop date: 11/05/13 2:4 4:00 Start Date: 11/05/13 Stop Date: 11/05/13 Status: Completed docusate 100 mg, 1 cap, Route: PO, Drug form: CAP, BID, kg, PRN Constipation, Start date: 11/05/13 6:09:00, Duration: 30 day, Stop date: 12/05/13 6:08:00 Notes: (Same as: Colace) (Do Not Crush) Start Date: 11/05/13 Stop Date: 11/09/13 Status: Discontinued docusate sodium 100 mg oral capsule 100 mg=1 cap, PO, BID, Constipation, # 60 cap, 0 Refill(s) Start Date: 11/09/13 Status: Ordered FLUoxetine 20 mg oral capsule 20 mg=1 cap, PO, Daily, # 30 cap, 0 Refill(s) Start Date: 11/09/13 Status: Ordered hydrOXYzine 25 mg, 1 tab, Route: PO, Drug form: TAB, QID, Dosing Weight 62.727, kg, PRN Itch ing, Start date: 11/06/13 9:08:00, Duration: 30 day, Stop date: 12/06/13 9:07:00 Notes: (Same as: Atarax) Avoid alcohol. Start Date: 11/06/13 Stop Date: 11/09/13 Status: Discontinued hydrOXYzine hydrochloride 25 mg oral tablet 25 mg=1 tab, PO, QID, Itching, # 60 tab, 0 Refill(s) Start Date: 11/09/13 Status: Ordered LORazepam 1 mg, 0.5 mL, Route: IV, Drug form: INJ, ONCE, Dosing Weight 62.727, kg, Start d ate: 11/07/13 10:47:00, Stop date: 11/07/13 10:47:00 Notes: (Same as: Ativan) Start Date: 11/07/13 Stop Date: 11/07/13 Status: Completed Lyrica 125 mg, PO, BID, 0 Refill(s) Start Date: 11/06/13 Status: Ordered Lyrica 125 mg, 5 cap, Route: PO, Drug form: CAP, BID, Dosing Weight 62.727, kg, Start d ate: 11/07/13 17:00:00, Duration: 30 day, Stop date: 12/07/13 9:00:00 Notes: (Same as: Lyrica) Start Date: 11/07/13 Stop Date: 11/09/13 Status: Discontinued morphine 10 mg oral capsule, extended release 10 mg=1 cap, PO, Q12H, # 60 cap, 0 Refill(s), given to patient Start Date: 11/09/13 Status: Ordered morphine Sulfate 4 mg, 2 mL, Route: IVP, Drug form: INJ, Q3H, kg, PRN Pain Score 7-10, Start date : 11/05/13 6:09:00, Duration: 30 day, Stop date: 12/05/13 6:08:00 Notes: (Same as:MORPhine Sulfate) Start Date: 11/05/13 Stop Date: 11/06/13 Status: Discontinued morphine Sulfate 2 mg, 1 mL, Route: IVP, Drug form: INJ, Q4H, Dosing Weight 62.727, kg, PRN Pain, Start date: 11/07/13 10:46:00, Duration: 30 day, Stop date: 12/07/13 10:45:00 Notes: (Same as:MORPhine Sulfate) Start Date: 11/07/13 Stop Date: 11/09/13 Status: Discontinued morphine Sulfate 2 mg, 1 mL, Route: IVP, Drug form: INJ, ONCE, Dosing Weight 62.727, kg, Start da te: 11/07/13 10:46:00, Stop date: 11/07/13 10:46:00 Notes: (Same as:MORPhine Sulfate) Start Date: 11/07/13 Stop Date: 11/08/13 Status: Completed MS Contin 15 mg, 1 tab, Route: PO, Drug form: ERTAB, Q12H, Dosing Weight 62.727, kg, Start date: 11/06/13 21:00:00, Duration: 30 day, Stop date: 12/06/13 9:00:00 Notes: Do not crush (Same as:Oramorph SR, MS Contin) Start Date: 11/06/13 Stop Date: 11/09/13 Status: Discontinued [place] 5/325 oral tablet 1 tab, Route: PO, Drug Form: TAB, kg, Q6H, PRN Pain, Start date: 11/05/13 5:28:0 0, Duration: 30 day, Stop date: 12/05/13 5:27:00 Start Date: 11/05/13 Stop Date: 11/05/13 Status: Deleted ondansetron 4 mg, 2 mL, Route: IVP, Drug form: INJ, Q8H, kg, PRN Nausea & Vomiting, Start date: 11/05/13 6:09:00, Duration: 30 day, Stop date: 12/05/13 6:08:00 Notes: (Same as: Zofran) Start Date: 11/05/13 Stop Date: 11/09/13 Status: Discontinued Patient's OWN med (Tretinoin cream 0.025 % top) Patient's OWN med (Tretinoin cream 0.025 % top), 1 appl, Drug form: MISC, Route: TOP, Bedtime, 11/07/13 21:00:00, Duration: 30 day, Stop date: 12/06/13 21:00:00 Start Date: 11/07/13 Stop Date: 11/09/13 Status: Discontinued PROzac 20 mg, 1 cap, Route: PO, Drug form: CAP, Daily, Dosing Weight 62.727, kg, Start date: 11/08/13 9:00:00, Duration: 30 day, Stop date: 12/07/13 9:00:00 Notes: (Same as: Prozac, Sarafem) Start Date: 11/08/13 Stop Date: 11/09/13 Status: Discontinued Robaxin 750 mg, 1 tab, Route: PO, Drug form: TAB, Bedtime, Start date: 11/07/13 21:00:00 , Duration: 30 day, Stop date: 12/06/13 21:00:00 Notes: (Same as:Robaxin) Start Date: 11/07/13 Stop Date: 11/09/13 Status: Discontinued Saline Flush 0.9% 5 mL, Route: IVP, Drug Form: INJ, kg, PRN, PRN Line Flush, Start date: 11/05/13 4:27:00, Duration: 24 hr, Stop date: 11/06/13 4:26:00 Start Date: 11/05/13 Stop Date: 11/05/13 Status: Discontinued Soma 350 mg, Route: PO, Drug form: TAB, Bedtime, Dosing Weight 62.727, kg, Start date : 11/07/13 21:00:00, Duration: 30 day, Stop date: 12/06/13 21:00:00 Start Date: 11/07/13 Stop Date: 11/07/13 Status: Deleted Soma 350 mg oral tablet 350 mg=1 tab, PO, Bedtime, 0 Refill(s) Start Date: 11/06/13 Stop Date: 11/09/13 Status: Discontinued tretinoin topical 0.025% cream 1 appl, TOP, Bedtime, # 20 gm, 0 Refill(s) Start Date: 11/06/13 Status: Ordered tretinoin topical 0.025% cream 1 appl, Route: TOP, Bedtime, Drug form: CRM, Start date: 11/07/13 21:00:00, Dura tion: 30 day, Stop date: 12/06/13 21:00:00 Start Date: 11/07/13 Stop Date: 11/07/13 Status: Deleted Zofran 4 mg, 2 mL, Route: IVP, Drug form: INJ, Q8H, kg, PRN as needed for nausea/vomiti ng, Priority: STAT, Start date: 11/05/13 5:28:00, Duration: 30 day, Stop date: 0 12/05/13 5:27:00 Notes: (Same as: Zofran) Start Date: 11/05/13 Stop Date: 11/06/13 Status: Discontinued Results ELECTROLYTES Most recent to 1 2 oldest [Reference Range]: Sodium Lvl [135-145 139 mEq/L 143 mEq/L mEq/L] (11/06/13 6:23 AM) (11/05/13 4:45 AM) Potassium Lvl 4.0 mEq/L 3.9 mEq/L [3.5-5.1 mEq/L] (11/06/13 6:23 AM) (11/05/13 4:45 AM) Chloride Lvl [95-109 104 mEq/L 111 mEq/L mEq/L] (11/06/13 6:23 AM) *HI* (11/05/13 4:45 AM) CO2 [24-32 mEq/L] 29 mEq/L 27 mEq/L (11/06/13 6:23 AM) (11/05/13 4:45 AM) AGAP [10.0-20.0 10.0 mEq/L 8.9 mEq/L mEq/L] (11/06/13 6:23 AM) *LOW* (11/05/13 4:45 AM) CHEM PANEL Most recent to 1 2 oldest [Reference Range]: Creatinine Lvl 0.7 mg/dL 0.8 mg/dL [0.5-1.4 mg/dL] (11/06/13 6:23 AM) (11/05/13 4:45 AM) eGFR 96 mL/min/1.73m2 1 82 mL/min/1.73m2 2 *NA* *NA* (11/06/13 6:23 AM) (11/05/13 4:45 AM) BUN [7-22 mg/dL] 7 mg/dL 6 mg/dL (11/06/13 6:23 AM) *LOW* (11/05/13 4:45 AM) Glucose Lvl [70-99 97 mg/dL 3 116 mg/dL 4 mg/dL] (11/06/13 6:23 AM) *HI* (11/05/13 4:45 AM) Calcium Lvl 9.0 mg/dL 9.1 mg/dL [8.5-10.5 mg/dL] (11/06/13 6:23 AM) (11/05/13 4:45 AM) 1Result Comment: The eGFR is calculated [...] be mul tiplied by the estimated BMI. 2Result Comment: The eGFR is calculated using the [...] be mul tiplied by the estimated BMI. 3Interpretive Data: Adult reference range values reflect the clinical guidelines of the [place] [employer]. 4Interpretive Data: Adult reference range values reflect the clinical guidelines of the [place] [employer]. IMMUNOLOGY Most recent to 1 2 oldest [Reference Range]: CRP [<=2.9 mg/L] 35.6 mg/L *HI* (11/05/13 4:45 AM) HEMATOLOGY Most recent to 1 2 oldest [Reference Range]: WBC [3.7-10.4 K/CMM] 7.0 K/CMM 8.5 K/CMM (11/06/13 6:23 AM) (11/05/13 4:45 AM) RBC [4.20-5.40 3.63 M/CMM 3.88 M/CMM M/CMM] *LOW* *LOW* (11/06/13 6:23 AM) (11/05/13 4:45 AM) Hgb [12.0-16.0 g/dL] 11.7 g/dL 12.7 g/dL *LOW* (11/05/13 4:45 AM) (11/06/13 6:23 AM) Hct [36.0-48.0 %] 35.8 % 37.9 % *LOW* (11/05/13 4:45 AM) (11/06/13 6:23 AM) MCV [81.0-99.0 fL] 98.6 fL 97.6 fL (11/06/13 6:23 AM) (11/05/13 4:45 AM) MCH [27.0-31.0 pg] 32.3 pg 32.7 pg *HI* *HI* (11/06/13 6:23 AM) (11/05/13 4:45 AM) MCHC [32.0-36.0 32.8 g/dL 33.5 g/dL g/dL] (11/06/13 6:23 AM) (11/05/13 4:45 AM) RDW [11.5-14.5 %] 12.5 % 12.6 % (11/06/13 6:23 AM) (11/05/13 4:45 AM) Platelet [133-450 276 K/CMM 288 K/CMM K/CMM] (11/06/13 6:23 AM) (11/05/13 4:45 AM) MPV [7.4-10.4 fL] 8.1 fL 8.1 fL (11/06/13 6:23 AM) (11/05/13 4:45 AM) Segs [45.0-75.0 %] 46.1 % 60.2 % (11/06/13 6:23 AM) (11/05/13 4:45 AM) Lymphocytes 38.2 % 26.3 % [20.0-40.0 %] (11/06/13 6:23 AM) (11/05/13 4:45 AM) Monocytes [2.0-12.0 10.3 % 9.0 % %] (11/06/13 6:23 AM) (11/05/13 4:45 AM) Eosinophils [0.0-4.0 4.9 % 3.9 % %] *HI* (11/05/13 4:45 AM) (11/06/13 6:23 AM) Basophils [0.0-1.0 0.5 % 0.6 % %] (11/06/13 6:23 AM) (11/05/13 4:45 AM) Segs-Bands # 3.2 K/CMM 5.1 K/CMM [1.5-8.1 K/CMM] (11/06/13 6:23 AM) (11/05/13 4:45 AM) Lymphocytes # 2.7 K/CMM 2.2 K/CMM [1.0-5.5 K/CMM] (11/06/13 6:23 AM) (11/05/13 4:45 AM) Monocytes # [0.0-0.8 0.7 K/CMM 0.8 K/CMM K/CMM] (11/06/13 6:23 AM) (11/05/13 4:45 AM) Eosinophils # 0.3 K/CMM 0.3 K/CMM [0.0-0.5 K/CMM] (11/06/13 6:23 AM) (11/05/13 4:45 AM) Basophils # [0.0-0.2 0.1 K/CMM K/CMM] (11/05/13 4:45 AM) Sed Rate [0-20 27 mm/hr mm/hr] *HI* (11/06/13 6:23 AM) PT [12.0-14.7 13.5 seconds seconds] (11/05/13 4:45 AM) INR [0.85-1.17] 1.04 5 (11/05/13 4:45 AM) PTT [22.9-35.8 29.7 seconds 6 seconds] (11/05/13 4:45 AM) 5Interpretive Data: RECOMMENDED RANGES FOR PROTIME INR: 2.0-3.0 for most medical and surgical thromboembolic states. 2.5-3.5 for artificial heart valves and recurrent embolism. INR SHOULD BE USED ONLY FOR PATIENTS ON STABLE ANTICOAGULANT THERAPY. 6Interpretive Data: Heparin Therapeutic Range: 57 - 92 Seconds Medications Administered During Your Visit No data available for this section Immunizations No data available for this section Social History Social History Type Response Alcohol Use: Current, Type: Beer, Type: Wine, Type: Liquor, Frequency: 1-2 times per month Smoking Status Current every day smoker, Type: Cigarettes, Exposure to Tobacco Smoke Patient smokes, Cigarette Smoking Last 365 Days Yes, Reg Smoking Cessation Counseling Yes Assessment and Plan Extracted from: Title: Clinical Document Author: Maria G Narayan Date: 11/09/13 Progress Note - Daily [facility] Completed: , NOV 09, 2013, 10:43 by Maria G Narayan RM: [id number] - 1P, [place] [id number] (: 1955) F Attending: Daniele Andersenne: Service: Internal Medicine Reason for Admission: L3 COMPRESSION FRACTURE, AVASCULAR NECROSIS OF L HIP Working DRG: Medical back problems w/o CORRECTION Code status: Full Code [Ordered]Current diet: Isolation: None Documented Allergies: Flexeril SUBJECTIVE Patient states she is still having pain in her left hip and lower back. She is fully ambulatory The patient states the pain is Pain scores: on 0-10 scale within the last 24 h. Worst pain: 8/10 Least pain: Average pain: Acceptable pain: 3/10 Current pain: 7/10 The pain medications are tolerated well. No side effects. Oral intake is tolerated well. OBJECTIVE General: The patient appears to be in no apparent pain. HEENT: PEERL, nonicteric Lungs: CTA BL CV: RRR Abd: ND, NT Back: mild LS tenderness Extremities: tenderness along L greater trochanter. Neurological: Non-focal (no lab data in past 24 hours) Jimenez still necessary (Yes/No): Line still necessary (Yes/No): VitalsTmp(F)[id number] 11/09 08:[id number] 21% 11/09 04:1197.32549/[id number]--- 11/09 00:0797.13232/380342--- 11/08 20:4398.61592/6018------ 11/08 16:0098.20411/[id number]--- 24 Hr Tmax: 98.7F (37.06c) at 11/08 12:00Vital Signs are the last 5 in the past 48 hours. DateWt(kg)Wt(lb)Ht(cm)Ht(in)Method 11/05 (initial) 62.73 138.00Measured 10/20144.94 61.00Stated I&ORecordInOutBal 10/2423hr Tot 240 0 240 10/2323hr Tot 803 0 803 Medications (14) Active Scheduled Meds (6): 11/08/13 FLUoxetine (PROzac) 20 mg PO Daily 11/09/13 clonazePAM 1 mg PO TID 11/07/13 methocarbamol (Robaxin) 750 mg PO Bedtime 11/06/13 morphine Sulfate (MS Contin) 15 mg PO Q12H 11/07/13 non-formulary (Patient's OWN med (Tretinoin cream 0.025 % top)) 1 appl TOP Bedtime 11/07/13 pregabalin (Lyrica) 125 mg PO BID Unscheduled Meds: None PRN Meds (8): 11/05/13 acetaminophen-hydrocodone (acetaminophen-hydrocodone 325 mg-10 mg oral tablet) 1 tab PO Q4H 11/05/13 acetaminophen 650 mg PO Q4H 11/05/13 cloNIDine (cloNIDine 0.1 mg oral tablet) 0.1 mg PO Q8H 11/05/13 docusate 100 mg PO BID 11/06/13 hydrOXYzine 25 mg PO QID 11/07/13 morphine Sulfate 2 mg IVP Q4H 11/05/13 ondansetron 4 mg IVP Q8H 11/05/13 zolpidem (Ambien) 5 mg PO Bedtime One Time Meds: None Continuous Infusions: None ASSESSMENT & EXAM PLAN & TREATMENT For now continue MS Contin 15 mg q 12h, [place] prn mild-moderate pain. 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
--- OUTSIDE RECORDS SUMMARY | 2018-03-20 15:43 | XMS REPORT | Continuity of Care Document ---
Author Author [facility] Interface Address Unknown Phone Unavailable Problems Problem Status Onset Date Classification Date Reported Comments Source ABD PAIN Active 07/29/2015 [facility] AVASCULAR NECROSIS R FEMORAL HEAD Active 07/29/2015 [facility] Discharge Diagnosis: Avascular necrosis of hip 07/24/2015 07/27/2015 [facility] Discharge Diagnosis: Abdominal pain 07/24/2015 07/27/2015 [facility] Discharge Diagnosis: Diverticulosis 07/24/2015 07/27/2015 [facility] Discharge Diagnosis: Avascular necrosis of femur head, left 06/02/2014 06/04/2014 [facility] Discharge Diagnosis: Depression 06/02/2014 06/04/2014 [facility] HIP PAIN DUE TO FALL Active 06/01/2014 [facility] Discharge Diagnosis: Chronic left hip pain 02/23/2014 02/26/2014 [facility] Discharge Diagnosis: Acute anxiety 02/23/2014 02/26/2014 [facility] LEFT SIDED HIP PAIN/FALL Active 02/23/2014 [facility] PAIN Active 12/20/2013 [facility] LEFT HIP AND LOWER BACK PAIN Active 11/26/2013 [facility] Discharge Diagnosis: Hip pain, chronic 11/26/2013 11/29/2013 [facility] L3 COMPRESSION FRACTURE, AVASCULAR NECRO Active 11/05/2013 [facility] HIP PAIN Active 11/05/2013 [facility] Back pain Active Problem 08/03/2015 [facility] Fibromyalgia Active Problem 08/03/2015 [facility] Hip pain Active Problem 08/03/2015 [facility] Scabies Resolved Problem 08/03/2015 [facility] Arthritis Resolved Problem 08/03/2015 [facility] Diverticula Resolved Problem 08/03/2015 [facility] FX LUMBAR VERTEBRA-CLOSE Active [facility] IDIOPATHIC ASEPTIC NECROSIS OF UNSPECIFI Active [facility] Medications Medication Details Route Status Patient Instructions Ordering Provider Order Date Source Lyrica 125 mg, 5 cap, Route: PO, Drug form: CAP, BID, Dosing Weight 49.5, kg, Start date: 07/31/15 9:00:00 CDT, Duration: 30 day, Stop date: 08/29/15 21:00:00 CDTNotes: (Same as: Lyrica) Inactive 07/31/2015 [facility] oxyCODONE 10 mg extended release 10 mg, 1 tab, Route: PO, Drug form: ERTAB, Q12H, Start date: 07/31/15 9:00:00 CDT, Duration: 30 day, Stop date: 08/29/15 21:00:00 CDTNotes: Do not crush or chew. (Same as: OxyContin) Inactive 07/31/2015 [facility] Ambien 5 mg, 1 tab, Route: PO, Drug form: TAB, Bedtime, Dosing Weight 49.5, kg, PRN Sleep, Start date: 07/31/15 7:41:00 CDT, Duration: 30 day, Stop date: 08/30/15 7:40:00 CDTNotes: (Same As: Ambien) Inactive 07/31/2015 [facility] Nicotine 21 mg, 1 patch, Route: TOP, Drug form: ERFILM, Daily, Dosing Weight 49.545, kg, Start date: 07/30/15 14:55:00 CDT, Duration: 30 day, Stop date: 08/29/15 9:00:00 CDTNotes: (Same as: Habitrol) "Remove old patch before application of new patch" WASTE: F/P - P Waste Black; E - P Waste Black No Longer Active 07/30/2015 [facility] pneumococcal capsular polysaccharide type 1 vaccine / pneumococcal capsular polysaccharide type 10A vaccine / pneumococcal capsular polysaccharide type 11A vaccine / pneumococcal capsular polysaccharide type 12F vaccine / pneumococcal capsular polysacchar 0.5 mL, Route: IM, Drug Form: INJ, ONCALL, Start date: 07/29/15 17:00:00 CDT, Duration: 1 doses or timesNotes: (Same as: Pneumovax 23) Refrigerate No Longer Active 07/29/2015 [facility] oxyCODONE 10 mg oral tablet 10 mg=1 tab, PO, BID, 0 Refill(s) Active 07/29/2015 [facility] Morphine 4 mg, 2 mL, Route: IVP, Drug form: INJ, Q4H, Dosing Weight 49.545, kg, PRN Pain Score 7-10, Start date: 07/29/15 14:43:00 CDT, Duration: 30 day, Stop date: 08/28/15 14:42:00 CDTNotes: (Same as:MORPhine Sulfate) No Longer Active 07/29/2015 [facility] Ondansetron 4 mg, 2 mL, Route: IVP, Drug form: INJ, Q6H, Dosing Weight 49.545, kg, PRN Nausea & Vomiting, Start date: 07/29/15 14:43:00 CDT, Duration: 30 day, Stop date: 08/28/15 14:42:00 CDTNotes: (Same as: Rosanna) MEDICATION WASTE Product Size: 4 mg Product Wasted: ___ mg No Longer Active 07/29/2015 [facility] Acetaminophen 325 MG / Hydrocodone Bitartrate 5 MG Oral Tablet 1 tab, Route: PO, Drug Form: TAB, Dosing Weight 49.545, kg, Q4H, PRN Pain Score 4-6, Start date: 07/29/15 14:43:00 CDT, Duration: 30 day, Stop date: 08/28/15 14:42:00 CDTNotes: (Same as: Pearson 325/5) Do not exceed 4gm/day of acetaminophen. No Longer Active 07/29/2015 [facility] Dilaudid 0.5 mg, Route: IVP, ONCE, Dosing Weight 49.545, kg, Priority: STAT, Start date: 07/29/15 12:04:00 CDT, Stop date: 07/29/15 12:04:00 CDT Inactive 07/29/2015 [facility] Dilaudid 0.5 mg, Route: IVP, ONCE, Dosing Weight 49.545, kg, Priority: STAT, Start date: 07/29/15 9:43:00 CDT, Stop date: 07/29/15 9:43:00 CDT Inactive 07/29/2015 [facility] Acetaminophen 300 MG / Codeine Phosphate 30 MG Oral Tablet [Tylenol with Codeine #3] 1 - 2 tab, PO, Q4H, PRN Pain, X 3 day, # 20 tab, 0 Refill(s) Active 07/24/2015 [facility] Morphine 2 mg, 1 mL, Route: IVP, Drug form: INJ, ONCE, Dosing Weight 50, kg, Priority: STAT, Start date: 07/24/15 4:42:00, Stop date: 07/24/15 4:42:00Notes: (Same as:MORPhine Sulfate) Inactive 07/24/2015 [facility] Morphine 4 mg, 2 mL, Route: IVP, Drug form: INJ, ONCE, Dosing Weight 50, kg, Priority: STAT, Start date: 07/24/15 0:55:00, Stop date: 07/24/15 0:55:00Notes: (Same as:MORPhine Sulfate) Inactive 07/24/2015 [facility] Sodium Chloride 0.154 MEQ/ML Injectable Solution 1,000 mL, 1,000 ml/hr, Infuse Over: 1 hr, Route: IV, 1,000, Drug form: INJ, ONCE, Priority: STAT, Dosing Weight 50 kg, Start date: 07/24/15 0:55:00, Duration: 1 doses or times, Stop date: 07/24/15 0:55:00 Inactive 07/24/2015 [facility] Saline Flush 0.9% 10 mL, Route: IVP, Drug Form: INJ, Dosing Weight 58.182, kg, PRN, PRN Line Flush, Start date: 07/23/15 22:57:00, Duration: 30 day, Stop date: 08/22/15 22:56:00Notes: (Same as: BD Posiflush) No Longer Active 07/24/2015 [facility] tramadol hydrochloride 50 MG Oral Tablet [Ultram] 50 mg=1 tab, PO, Q4H, pain, # 20 tab, 0 Refill(s) Active 06/02/2014 [facility] NS 1,000 mL 1,000 mL, Rate: 100 ml/hr, Infuse over: 10 hr, Route: IV, Dosing Weight 58.182 kg, Total Volume: 1,000, Start date: 06/01/14 22:29:00, Duration: 30 day, Stop date: 07/01/14 22:28:00 No Longer Active 06/02/2014 [facility] Ativan 1 mg, 1 tab, Route: PO, Drug form: TAB, ONCE, Dosing Weight 58.182, kg, Priority: STAT, Start date: 06/01/14 22:29:00, Stop date: 06/01/14 22:29:00Notes: (Same as: Ativan) No Longer Active 06/02/2014 [facility] Ketorolac 60 mg, Route: IM, Drug form: INJ, ONCE, Dosing Weight 59.091, kg, Priority: STAT, Start date: 02/23/14 7:01:00, Stop date: 02/23/14 7:01:00 Inactive 02/23/2014 [facility] Morphine 4 mg, Route: IVP, Drug form: INJ, ONCE, Dosing Weight 59.091, kg, Priority: STAT, Start date: 02/23/14 4:51:00, Stop date: 02/23/14 4:51:00 Inactive 02/23/2014 [facility] Acetaminophen 325 MG / Hydrocodone Bitartrate 10 MG Oral Tablet [Pearson 10/325] 1 tab, PO, Q6H, for pain, # 12 tab, 0 Refill(s) Active 12/21/2013 [facility] Morphine 4 mg, Route: IM, ONCE, Dosing Weight 56.818, kg, Priority: STAT, Start date: 12/21/13 2:14:00, Stop date: 12/21/13 2:14:00 Inactive 12/21/2013 [facility] Dilaudid 0.5 mg, 0.5 mL, Route: IM, Drug form: INJ, ONCE, Dosing Weight 59.091, kg, Priority: STAT, Start date: 11/26/13 17:56:00, Stop date: 11/26/13 17:56:00 Inactive 11/26/2013 [facility] Acetaminophen 325 MG / Hydrocodone Bitartrate 10 MG Oral Tablet [Pearson 10/325] 1-2 tab, PO, Q4-6H, Pain, # 10 tab, 0 Refill(s) Active 11/26/2013 [facility] Dilaudid 0.5 mg, Route: IVP, ONCE, Dosing Weight 59.091, kg, Priority: STAT, Start date: 11/26/13 17:47:00, Stop date: 11/26/13 17:47:00 Inactive 11/26/2013 [facility] Morphine Sulfate 10 MG Extended Release Capsule 10 mg=1 cap, PO, Q12H, # 60 cap, 0 Refill(s), given to patient Active 11/09/2013 [facility] Acetaminophen 325 MG / Hydrocodone Bitartrate 10 MG Oral Tablet 1 tab, PO, Q6H, Pain Score 4-6, # 120 tab, 0 Refill(s), given to patient Active 11/09/2013 [facility] Clonazepam 1 mg, 2 tab, Route: PO, Drug form: TAB, TID, Dosing Weight 62.727, kg, Start date: 11/09/13 9:00:00, Duration: 30 day, Stop date: 12/08/13 17:00:00Notes: (Same As: KlonoPIN) Inactive 11/09/2013 [facility] Hydroxyzine Hydrochloride 25 MG Oral Tablet 25 mg=1 tab, PO, QID, Itching, # 60 tab, 0 Refill(s) Active 11/09/2013 [facility] FLUoxetine 20 mg oral capsule 20 mg=1 cap, PO, Daily, # 30 cap, 0 Refill(s) Active 11/09/2013 [facility] Docusate Sodium 100 MG Oral Capsule 100 mg=1 cap, PO, BID, Constipation, # 60 cap, 0 Refill(s) Active 11/09/2013 [facility] Prozac 20 mg, 1 cap, Route: PO, Drug form: CAP, Daily, Dosing Weight 62.727, kg, Start date: 11/08/13 9:00:00, Duration: 30 day, Stop date: 12/07/13 9:00:00Notes: (Same as: Prozac, Sarafem) No Longer Active 11/08/2013 [facility] Soma 350 mg, Route: PO, Drug form: TAB, Bedtime, Dosing Weight 62.727, kg, Start date: 11/07/13 21:00:00, Duration: 30 day, Stop date: 12/06/13 21:00:00 Inactive 11/08/2013 [facility] Patient's OWN med (Tretinoin cream 0.025 % top) Patient's OWN med (Tretinoin cream 0.025 % top), 1 appl, Drug form: MISC, Route: TOP, Bedtime, 11/07/13 21:00:00, Duration: 30 day, Stop date: 12/06/13 21:00:00 No Longer Active 11/08/2013 [facility] Robaxin 750 mg, 1 tab, Route: PO, Drug form: TAB, Bedtime, Start date: 11/07/13 21:00:00, Duration: 30 day, Stop date: 12/06/13 21:00:00Notes: (Same as:Robaxin) No Longer Active 11/08/2013 [facility] Tretinoin 0.25 MG/ML Topical Cream 1 appl, Route: TOP, Bedtime, Drug form: CRM, Start date: 11/07/13 21:00:00, Duration: 30 day, Stop date: 12/06/13 21:00:00 Inactive 11/08/2013 [facility] Lyrica 125 mg, 5 cap, Route: PO, Drug form: CAP, BID, Dosing Weight 62.727, kg, Start date: 11/07/13 17:00:00, Duration: 30 day, Stop date: 12/07/13 9:00:00Notes: (Same as: Lyrica) No Longer Active 11/07/2013 [facility] Clonazepam 2 mg, 4 tab, Route: PO, Drug form: TAB, TID, Dosing Weight 62.727, kg, Start date: 11/07/13 13:00:00, Duration: 30 day, Stop date: 12/07/13 9:00:00Notes: (Same As: KlonoPIN) No Longer Active 11/07/2013 [facility] Lorazepam 1 mg, 0.5 mL, Route: IV, Drug form: INJ, ONCE, Dosing Weight 62.727, kg, Start date: 11/07/13 10:47:00, Stop date: 11/07/13 10:47:00Notes: (Same as: Ativan) Inactive 11/07/2013 [facility] Morphine 2 mg, 1 mL, Route: IVP, Drug form: INJ, Q4H, Dosing Weight 62.727, kg, PRN Pain, Start date: 11/07/13 10:46:00, Duration: 30 day, Stop date: 12/07/13 10:45:00Notes: (Same as:MORPhine Sulfate) No Longer Active 11/07/2013 [facility] Ambien 5 mg, Route: PO, Drug form: TAB, Bedtime, Dosing Weight 62.727, kg, PRN as needed for sleep, Start date: 11/07/13 10:32:00, Duration: 30 day, Stop date: 12/07/13 10:31:00 Inactive 11/07/2013 [facility] MS Contin 15 mg, 1 tab, Route: PO, Drug form: ERTAB, Q12H, Dosing Weight 62.727, kg, Start date: 11/06/13 21:00:00, Duration: 30 day, Stop date: 12/06/13 9:00:00Notes: Do not crush (Same as:Oramorph SR, MS Contin) No Longer Active 11/07/2013 [facility] Dilaudid 0.2 mg, 0.2 mL, Route: IV, Drug form: INJ, Q4H, Dosing Weight 62.727, kg, PRN Pain Score 7-10, Start date: 11/06/13 17:24:00, Duration: 30 day, Stop date: 12/06/13 17:23:00 No Longer Active 11/06/2013 [facility] Zolpidem tartrate 5 MG Oral Tablet [Ambien] 5 mg=1 tab, PO, Bedtime, for sleep, 0 Refill(s) Active 11/06/2013 [facility] Tretinoin 0.25 MG/ML Topical Cream 1 appl, TOP, Bedtime, # 20 gm, 0 Refill(s) Active 11/06/2013 [facility] Lyrica 125 mg, PO, BID, 0 Refill(s) Active 11/06/2013 [facility] clonazePAM 2 mg oral tablet 2 mg=1 tab, PO, TID, 0 Refill(s) Active 11/06/2013 [facility] Carisoprodol 350 MG Oral Tablet [Soma] 350 mg=1 tab, PO, Bedtime, 0 Refill(s) No Longer Active 11/06/2013 [facility] Hydroxyzine 25 mg, 1 tab, Route: PO, Drug form: TAB, QID, Dosing Weight 62.727, kg, PRN Itching, Start date: 11/06/13 9:08:00, Duration: 30 day, Stop date: 12/06/13 9:07:00Notes: (Same as: Atarax) Avoid alcohol. No Longer Active 11/06/2013 [facility] Benadryl 25 mg, 1 tab, Route: PO, Drug form: TAB, Q6H, Dosing Weight 62.727, kg, PRN as needed for itching, Start date: 11/05/13 20:21:00, Duration: 30 day, Stop date: 12/05/13 20:20:00 No Longer Active 11/06/2013 [facility] Ativan 1 mg, Route: IVP, Drug form: INJ, ONCE, Dosing Weight 62.727, kg, PRN Anxiety, Priority: NOW, Start date: 11/05/13 15:33:00 Inactive 11/05/2013 [facility] Docusate 100 mg, 1 cap, Route: PO, Drug form: CAP, BID, kg, PRN Constipation, Start date: 11/05/13 6:09:00, Duration: 30 day, Stop date: 12/05/13 6:08:00Notes: (Same as: Colace) (Do Not Crush) No Longer Active 11/05/2013 [facility] Morphine 4 mg, 2 mL, Route: IVP, Drug form: INJ, Q3H, kg, PRN Pain Score 7-10, Start date: 11/05/13 6:09:00, Duration: 30 day, Stop date: 12/05/13 6:08:00Notes: (Same as:MORPhine Sulfate) No Longer Active 11/05/2013 [facility] Acetaminophen 325 MG / Hydrocodone Bitartrate 10 MG Oral Tablet 1 tab, Route: PO, Drug Form: TAB, kg, Q4H, PRN Pain Score 4-6, Start date: 11/05/13 6:09:00, Duration: 30 day, Stop date: 12/05/13 6:08:00Notes: Do not exceed 4gm/day of acetaminophen. (Same as: Pearson 325/10) No Longer Active 11/05/2013 [facility] Acetaminophen 325 MG / Hydrocodone Bitartrate 5 MG Oral Tablet 1 tab, Route: PO, Drug Form: TAB, kg, Q4H, PRN Pain Score 1-3, Start date: 11/05/13 6:09:00, Duration: 30 day, Stop date: 12/05/13 6:08:00Notes: (Same as: Pearson 325/5) Do not exceed 4gm/day of acetaminophen. No Longer Active 11/05/2013 [facility] Ondansetron 4 mg, 2 mL, Route: IVP, Drug form: INJ, Q8H, kg, PRN Nausea & Vomiting, Start date: 11/05/13 6:09:00, Duration: 30 day, Stop date: 12/05/13 6:08:00Notes: (Same as: Zofran) No Longer Active 11/05/2013 [facility] Acetaminophen 650 mg, 20.3 mL, Route: PO, Drug form: LIQ, Q4H, kg, PRN Pain 1-3/Temp > 100.4 F, Start date: 11/05/13 6:09:00, Duration: 30 day, Stop date: 12/05/13 6:08:00Notes: Max qktyoinssexey=8302qd/day (4 gm/ day). (Same as: Tylenol) No Longer Active 11/05/2013 [facility] Ambien 5 mg, 1 tab, Route: PO, Drug form: TAB, Bedtime, kg, PRN Insomnia, Start date: 11/05/13 5:28:00, Duration: 30 day, Stop date: 12/05/13 5:27:00Notes: (Same As: Ambien) No Longer Active 11/05/2013 [facility] Clonidine Hydrochloride 0.1 MG Oral Tablet 0.1 mg, 1 tab, Route: PO, Drug form: TAB, Q8H, kg, PRN See Nurse's Notes, Start date: 11/05/13 5:28:00, Duration: 30 day, Stop date: 12/05/13 5:27:00, SBP >160Notes: (Same As: Catapres) No Longer Active 11/05/2013 [facility] Acetaminophen 325 MG / Hydrocodone Bitartrate 5 MG Oral Tablet [Pearson 5/325] 1 tab, Route: PO, Drug Form: TAB, kg, Q6H, PRN Pain, Start date: 11/05/13 5:28:00, Duration: 30 day, Stop date: 12/05/13 5:27:00 Inactive 11/05/2013 [facility] Zofran 4 mg, 2 mL, Route: IVP, Drug form: INJ, Q8H, kg, PRN as needed for nausea/vomiting, Priority: STAT, Start date: 11/05/13 5:28:00, Duration: 30 day, Stop date: 12/05/13 5:27:00Notes: (Same as: Zofran) No Longer Active 11/05/2013 [facility] Saline Flush 0.9% 5 mL, Route: IVP, Drug Form: INJ, kg, PRN, PRN Line Flush, Start date: 11/05/13 4:27:00, Duration: 24 hr, Stop date: 11/06/13 4:26:00 Inactive 11/05/2013 [facility] Dilaudid 1 mg, Route: IM, ONCE, kg, Start date: 11/05/13 2:44:00, Stop date: 11/05/13 2:44:00 Inactive 11/05/2013 [facility] Allergies, Adverse Reactions, Alerts Substance Category Reaction Severity Reaction type Status Date Reported Comments Source Flexeril Assertion Drug allergy Active [facility] Immunizations Immunization Date Given Site Status Last Updated Comments Source Results Order Name Results Value Reference Range Date Interpretation Comments Source URINE AND STOOL UA Urobilinogen <=1.0 mg/dL 0.1 - 1.0 07/29/2015 [facility] URINE AND STOOL UA Color Ltyellow 07/29/2015 [facility] URINE AND STOOL UA Bacteria Occasional /HPF None Seen /HPF 07/29/2015 [facility] URINE AND STOOL UA Bili Negative *NA* (07/29/15 9:39 AM) Negative 07/29/2015 [facility] URINE AND STOOL UA Ketones Negative mg/dL Negative mg/dL 07/29/2015 [facility] URINE AND STOOL UA Protein Negative mg/dL Negative mg/dL 07/29/2015 [facility] URINE AND STOOL UA Glucose Negative mg/dL Negative mg/dL 07/29/2015 [facility] URINE AND STOOL UA pH 7.0 5.0 - 8.0 07/29/2015 [facility] URINE AND STOOL UA RBC null 0 - 2 07/29/2015 [facility] URINE AND STOOL UA WBC 1 /HPF 0 - 5 07/29/2015 [facility] URINE AND STOOL UA Sq Epi Occasional /LPF Few /LPF 07/29/2015 [facility] URINE AND STOOL UA Leuk Est Negative (07/29/15 9:39 AM) Negative 07/29/2015 [facility] URINE AND STOOL UA Nitrite Negative (07/29/15 9:39 AM) Negative 07/29/2015 [facility] URINE AND STOOL UA Blood Negative (07/29/15 9:39 AM) Negative 07/29/2015 [facility] URINE AND STOOL UA Turbidity Clear (07/29/15 9:39 AM) Clear 07/29/2015 [facility] URINE AND STOOL UA Spec Grav 1.004 <=1.030 07/29/2015 [facility] CHEM PANEL eGFR 92 mL/min/1.73m2 07/29/2015 Result Comment: The eGFR is calculated using the [...] from the National Kidney Disease Education Program (NKDEP) which additionally recommends that when the eGFR is used in patients with extremes of body mass index for purposes of drug dosing, the eGFR should be multiplied by the estimated BMI. [facility] CHEM PANEL Bili Total 0.9 mg/dL 0.2 - 1.3 07/29/2015 [facility] CHEM PANEL Alk Phos 76 unit/L 39 - 136 07/29/2015 [facility] CHEM PANEL BUN 6 mg/dL 7 - 22 07/29/2015 [facility] CHEM PANEL Creatinine Lvl 0.72 mg/dL 0.50 - 1.40 07/29/2015 [facility] CHEM PANEL Sodium Lvl 141 meq/L 135 - 145 07/29/2015 [facility] CHEM PANEL Glucose Lvl 101 mg/dL 70 - 99 07/29/2015 [facility] CHEM PANEL CO2 29 meq/L 24 - 32 07/29/2015 [facility] CHEM PANEL Potassium Lvl 3.9 meq/L 3.5 - 5.1 07/29/2015 [facility] CHEM PANEL Chloride Lvl 108 meq/L 95 - 109 07/29/2015 [facility] CHEM PANEL AST 13 unit/L 0 - 37 07/29/2015 [facility] CHEM PANEL Albumin Lvl 3.5 g/dL 3.5 - 5.0 07/29/2015 [facility] CHEM PANEL ALT 15 unit/L 0 - 65 07/29/2015 [facility] CHEM PANEL Calcium Lvl 8.9 mg/dL 8.5 - 10.5 07/29/2015 [facility] CHEM PANEL Total Protein 6.7 g/dL 6.4 - 8.4 07/29/2015 [facility] CHEM PANEL AGAP 7.9 meq/L 10.0 - 20.0 07/29/2015 [facility] CHEM PANEL B/C Ratio 8 6 - 25 07/29/2015 [facility] CHEM PANEL Globulin 3.2 g/dL 2.0 - 4.0 07/29/2015 [facility] CHEM PANEL A/G Ratio 1.1 0.7 - 1.6 07/29/2015 [facility] Platelet 259 K/CMM 133 - 450 07/29/2015 [facility] RDW 13.4 % 11.5 - 14.5 07/29/2015 [facility] MCV 101.1 fL 80.0 - 98.0 07/29/2015 [facility] MCHC 32.9 g/dL 32.0 - 36.0 07/29/2015 [facility] MCH 33.3 pg 27.0 - 31.0 07/29/2015 [facility] Hct 42.1 % 36.0 - 48.0 07/29/2015 [facility] MPV 9.1 fL 7.4 - 10.4 07/29/2015 [facility] WBC 4.7 K/CMM 3.7 - 10.4 07/29/2015 [facility] RBC 4.16 M/CMM 4.20 - 5.40 07/29/2015 [facility] Hgb 13.9 g/dL 12.0 - 16.0 07/29/2015 [facility] Macrocyte 1+ *ABN* (07/29/15 8:02 AM) None Seen 07/29/2015 [facility] Segs 53.6 % 45.0 - 75.0 07/29/2015 [facility] Lymphocytes 36.9 % 20.0 - 40.0 07/29/2015 [facility] Basophils 0.2 % 0.0 - 1.0 07/29/2015 [facility] Monocytes 7.4 % 2.0 - 12.0 07/29/2015 [facility] Lymphocytes # 1.7 K/CMM 1.0 - 5.5 07/29/2015 [facility] Monocytes # 0.3 K/CMM 0.0 - 0.8 07/29/2015 [facility] Segs-Bands # 2.5 K/CMM 1.5 - 8.1 07/29/2015 [facility] Eosinophils 1.9 % 0.0 - 4.0 07/29/2015 [facility] Eosinophils # 0.1 K/CMM 0.0 - 0.5 07/29/2015 [facility] Hip 2/3 views uni DX Hip 2/3 views uni DX Right hip 2 views: There is no fracture or dislocation. The joint space appears normal in width. There is no definite evidence of avascular necrosis although mild subchondral cyst formation in the femoral head could not be completely excluded. Mild spurring around the lateral femoral head is noted. There are no other significant osseous, articular or soft tissue abnormalities. [id number] 07/29/2015 - - Read by: Panda Forte MD Dictated Date/time: 07/29/15 10:42 Electronically Signed by: Panda Forte MD 07/29/15 10:43 FINAL REPORT [facility] Pelvis AP DX Pelvis AP DX Pelvis one view: There is avascular necrosis in the left femoral head, worsening since 06/01/2014 with more flattening and erosive changes. Lateral subluxation of the femoral head is noted. There is no fracture or dislocation. See the right hip report on the same date for additional comments. [id number] 07/29/2015 - - Read by: Panda Forte MD Dictated Date/time: 07/29/15 10:39 Electronically Signed by: Panda Forte MD 07/29/15 10:42 FINAL REPORT [facility] URINE AND STOOL UA Color Ltyellow 07/24/2015 [facility] URINE AND STOOL UA Urobilinogen <=1.0 mg/dL 0.1 - 1.0 07/24/2015 [facility] URINE AND STOOL UA Turbidity Slight *ABN* (07/24/15 2:26 AM) Clear 07/24/2015 [facility] URINE AND STOOL UA Spec Grav 1.009 <=1.030 07/24/2015 [facility] URINE AND STOOL UA pH 6.0 5.0 - 8.0 07/24/2015 [facility] URINE AND STOOL UA Leuk Est Moderate *ABN* (07/24/15 2:26 AM) Negative 07/24/2015 [facility] URINE AND STOOL UA Sq Epi Many /LPF Few /LPF 07/24/2015 [facility] URINE AND STOOL UA Nitrite Negative (07/24/15 2:26 AM) Negative 07/24/2015 [facility] URINE AND STOOL UA Bili Negative *NA* (07/24/15 2:26 AM) Negative 07/24/2015 [facility] URINE AND STOOL UA Blood Negative (07/24/15 2:26 AM) Negative 07/24/2015 [facility] URINE AND STOOL UA Hyal Cast 3 /LPF 0 - 2 07/24/2015 [facility] URINE AND STOOL UA WBC 13 /HPF 0 - 5 07/24/2015 [facility] URINE AND STOOL UA RBC 9 /HPF 0 - 2 07/24/2015 [facility] URINE AND STOOL UA Glucose Negative mg/dL Negative mg/dL 07/24/2015 [facility] URINE AND STOOL UA Ketones Negative mg/dL Negative mg/dL 07/24/2015 [facility] URINE AND STOOL UA Protein Negative mg/dL Negative mg/dL 07/24/2015 [facility] CHEM PANEL Lipase Lvl 66 unit/L 73 - 393 07/24/2015 [facility] CHEM PANEL eGFR 102 mL/min/1.73m2 07/24/2015 Result Comment: The eGFR is calculated using the [...] from the National Kidney Disease Education Program (NKDEP) which additionally recommends that when the eGFR is used in patients with extremes of body mass index for purposes of drug dosing, the eGFR should be multiplied by the estimated BMI. [facility] CHEM PANEL BUN 9 mg/dL 7 - 22 07/24/2015 [facility] CHEM PANEL Creatinine Lvl 0.57 mg/dL 0.50 - 1.40 07/24/2015 [facility] CHEM PANEL Glucose Lvl 88 mg/dL 70 - 99 07/24/2015 [facility] CHEM PANEL Sodium Lvl 142 meq/L 135 - 145 07/24/2015 [facility] CHEM PANEL Calcium Lvl 8.8 mg/dL 8.5 - 10.5 07/24/2015 [facility] CHEM PANEL CO2 31 meq/L 24 - 32 07/24/2015 [facility] CHEM PANEL Chloride Lvl 107 meq/L 95 - 109 07/24/2015 [facility] CHEM PANEL Potassium Lvl 3.9 meq/L 3.5 - 5.1 07/24/2015 [facility] CHEM PANEL Albumin Lvl 3.0 g/dL 3.5 - 5.0 07/24/2015 [facility] CHEM PANEL Total Protein 5.8 g/dL 6.4 - 8.4 07/24/2015 [facility] CHEM PANEL Alk Phos 68 unit/L 39 - 136 07/24/2015 [facility] CHEM PANEL ALT 16 unit/L 0 - 65 07/24/2015 [facility] CHEM PANEL Bili Total 0.3 mg/dL 0.2 - 1.3 07/24/2015 [facility] CHEM PANEL AST 15 unit/L 0 - 37 07/24/2015 [facility] CHEM PANEL A/G Ratio 1.1 0.7 - 1.6 07/24/2015 [facility] CHEM PANEL Globulin 2.8 g/dL 2.0 - 4.0 07/24/2015 [facility] CHEM PANEL B/C Ratio 16 6 - 25 07/24/2015 [facility] CHEM PANEL AGAP 7.9 meq/L 10.0 - 20.0 07/24/2015 [facility] HEMATOLOGY Macrocyte 1+ *ABN* (07/24/15 12:09 AM) None Seen 07/24/2015 [facility] HEMATOLOGY Monocytes # 0.6 K/CMM 0.0 - 0.8 07/24/2015 [facility] Monocytes 9.5 % 2.0 - 12.0 07/24/2015 [facility] HEMATOLOGY Eosinophils 1.9 % 0.0 - 4.0 07/24/2015 [facility] HEMATOLOGY Basophils 0.6 % 0.0 - 1.0 07/24/2015 [facility] Lymphocytes # 2.8 K/CMM 1.0 - 5.5 07/24/2015 [facility] HEMATOLOGY Eosinophils # 0.1 K/CMM 0.0 - 0.5 07/24/2015 [facility] HEMATOLOGY Segs 44.8 % 45.0 - 75.0 07/24/2015 [facility] Lymphocytes 43.2 % 20.0 - 40.0 07/24/2015 [facility] HEMATOLOGY Segs-Bands # 2.9 K/CMM 1.5 - 8.1 07/24/2015 [facility] HEMATOLOGY RBC 3.77 M/CMM 4.20 - 5.40 07/24/2015 [facility] HEMATOLOGY WBC 6.5 K/CMM 3.7 - 10.4 07/24/2015 [facility] HEMATOLOGY Platelet 212 K/CMM 133 - 450 07/24/2015 [facility] HEMATOLOGY RDW 14.0 % 11.5 - 14.5 07/24/2015 [facility] Hgb 12.4 g/dL 12.0 - 16.0 07/24/2015 [facility] MCHC 32.2 g/dL 32.0 - 36.0 07/24/2015 [facility] Hct 38.6 % 36.0 - 48.0 07/24/2015 [facility] MCV 102.3 fL 80.0 - 98.0 07/24/2015 [facility] MCH 32.9 pg 27.0 - 31.0 07/24/2015 [facility] MPV 8.8 fL 7.4 - 10.4 07/24/2015 [facility] Abdomen/Pelvis w IV contrast CT Abdomen/Pelvis w IV contrast CT Study: Abdomen/Pelvis w IV contrast CT Clinical Indication: Right lower quadrant pain Comparison: CT of the pelvis from 06/02/2014 TECHNIQUE: Multiple axial CT images of the abdomen and pelvis were acquired following the administration of intravenous contrast. Oral contrast was administered to the patient. Sagittal and coronal reformatted images were performed. CT Radiation Dose DLP 1273.99 mGy-cm FINDINGS: The visualized lung bases are clear bilaterally. The liver, gallbladder, pancreas, spleen, and adrenal glands have a normal CT appearance. No intrahepatic or extrahepatic biliary duct dilatation is seen. Scattered diverticula in the distal descending colon are seen without inflammatory change to suggest acute diverticulitis. Moderate amount of fecal material throughout the remaining colon and rectum are seen. Appendix is unremarkable. No intraperitoneal free air, free fluid, or pathologic adenopathy is seen. Superficial soft tissues are unremarkable. Degenerative changes of the lumbar spine are seen. Findings compatible with osteonecrosis of the left femoral head are seen with associated articular surface collapse and superimposed severe left hip osteoarthrosis. Large left hip joint effusion with intra-articular loose bodies are seen. Urinary bladder is well-distended. Uterus and ovaries are unremarkable. IMPRESSION: 1. No acute intra-abdominal/pelvic abnormality. SL: [id number] 07/24/2015 - - Read by: Wesley Macias MD Dictated Date/time: 07/24/15 03:43 Electronically Signed by: Wesley Macias MD 07/24/15 03:46 FINAL REPORT [facility] DRUG SCREEN U Phencyc Scr Negative *NA* (06/02/14 6:59 AM) Negative 06/02/2014 [facility] DRUG SCREEN U Opiate Scr Negative *NA* (06/02/14 6:59 AM) Negative 06/02/2014 [facility] DRUG SCREEN U Cannab Scr Negative *NA* (06/02/14 6:59 AM) Negative 06/02/2014 [facility] DRUG SCREEN UDS Note See Note 3 (06/02/14 6:59 AM) 06/02/2014 3Interpretive Data: Drugs reported as positive have [...] Methadone 300 ng/mL Urine alcohol 20 mg/dL [facility] DRUG SCREEN U Amph Scr Positive *ABN* (06/02/14 6:59 AM) Negative 06/02/2014 [facility] DRUG SCREEN U Keerthi Scr Negative *NA* (06/02/14 6:59 AM) Negative 06/02/2014 [facility] DRUG SCREEN U Benzodia Scr Positive *ABN* (06/02/14 6:59 AM) Negative 06/02/2014 [facility] DRUG SCREEN U Cocaine Scr Negative *NA* (06/02/14 6:59 AM) Negative 06/02/2014 [facility] URINE AND STOOL UA Bacteria Occasional /HPF None Seen /HPF 06/02/2014 [facility] URINE AND STOOL UA RBC 0-2 /HPF 0 - 2 06/02/2014 [facility] URINE AND STOOL UA Sq Epi Occasional /LPF Few /LPF 06/02/2014 [facility] URINE AND STOOL Micro? Performed (06/02/14 6:59 AM) 06/02/2014 [facility] URINE AND STOOL UA Nitrite Negative (06/02/14 6:59 AM) Negative 06/02/2014 [facility] URINE AND STOOL UA WBC 0-2 /HPF 0 - 5 06/02/2014 [facility] URINE AND STOOL UA Leuk Est Negative (06/02/14 6:59 AM) Negative 06/02/2014 [facility] URINE AND STOOL UA Blood Trace *ABN* (06/02/14 6:59 AM) Negative 06/02/2014 [facility] URINE AND STOOL UA Bili Negative *NA* (06/02/14 6:59 AM) Negative 06/02/2014 [facility] URINE AND STOOL UA Urobilinogen 0.2 EU/dL 0.1 - 1.0 06/02/2014 [facility] URINE AND STOOL UA Glucose Negative (06/02/14 6:59 AM) Negative 06/02/2014 [facility] URINE AND STOOL UA Ketones Negative *NA* (06/02/14 6:59 AM) Negative 06/02/2014 [facility] URINE AND STOOL UA Protein Negative (06/02/14 6:59 AM) Negative 06/02/2014 [facility] URINE AND STOOL UA Spec Grav 1.015 <=1.030 06/02/2014 [facility] URINE AND STOOL UA pH 6.5 5.0 - 8.0 06/02/2014 [facility] URINE AND STOOL UA Turbidity Clear (06/02/14 6:59 AM) Clear 06/02/2014 [facility] URINE AND STOOL UA Color Yellow *NA* (06/02/14 6:59 AM) Yellow 06/02/2014 [facility] ELECTROLYTES CO2 29 meq/L 24 - 32 06/02/2014 [facility] ELECTROLYTES Glucose Lvl 100 mg/dL 70 - 99 06/02/2014 2Interpretive Data: Adult reference range values reflect the clinical guidelines of the [place] [employer]. [facility] ELECTROLYTES Albumin Lvl 3.4 g/dL 3.5 - 5.0 06/02/2014 [facility] ELECTROLYTES BUN 10 mg/dL 7 - 22 06/02/2014 [facility] ELECTROLYTES AST 20 unit/L 0 - 37 06/02/2014 [facility] ELECTROLYTES ALT 23 unit/L 0 - 65 06/02/2014 [facility] ELECTROLYTES AGAP 8.0 meq/L 10.0 - 20.0 06/02/2014 [facility] ELECTROLYTES B/C Ratio 11 6 - 25 06/02/2014 [facility] ELECTROLYTES Bili Total 0.8 mg/dL 0.2 - 1.3 06/02/2014 [facility] ELECTROLYTES Alk Phos 91 unit/L 39 - 136 06/02/2014 [facility] ELECTROLYTES Total Protein 7.1 g/dL 6.4 - 8.4 06/02/2014 [facility] ELECTROLYTES A/G Ratio 0.9 0.7 - 1.6 06/02/2014 [facility] ELECTROLYTES Globulin 3.7 g/dL 2.0 - 4.0 06/02/2014 [facility] ELECTROLYTES eGFR 71 mL/min/1.73m2 06/02/2014 1Result Comment: The eGFR is calculated using [...] from the National Kidney Disease Education Program (NKDEP) which additionally recommends that when the eGFR is used in patients with extremes of body mass index for purposes of drug dosing, the eGFR should be multiplied by the estimated BMI. [facility] ELECTROLYTES Creatinine Lvl 0.9 mg/dL 0.5 - 1.4 06/02/2014 [facility] ELECTROLYTES Sodium Lvl 138 meq/L 135 - 145 06/02/2014 [facility] ELECTROLYTES Chloride Lvl 105 meq/L 95 - 109 06/02/2014 [facility] ELECTROLYTES Potassium Lvl 4.0 meq/L 3.5 - 5.1 06/02/2014 [facility] ELECTROLYTES Calcium Lvl 9.1 mg/dL 8.5 - 10.5 06/02/2014 [facility] HEMATOLOGY Basophils # 0.1 K/CMM 0.0 - 0.2 06/02/2014 [facility] HEMATOLOGY Eosinophils # 0.8 K/CMM 0.0 - 0.5 06/02/2014 [facility] HEMATOLOGY Lymphocytes # 1.7 K/CMM 1.0 - 5.5 06/02/2014 [facility] HEMATOLOGY Monocytes # 1.1 K/CMM 0.0 - 0.8 06/02/2014 [facility] HEMATOLOGY Basophils 0.8 % 0.0 - 1.0 06/02/2014 [facility] HEMATOLOGY Segs-Bands # 8.5 K/CMM 1.5 - 8.1 06/02/2014 [facility] Segs 69.4 % 45.0 - 75.0 06/02/2014 [facility] Eosinophils 6.4 % 0.0 - 4.0 06/02/2014 [facility] Lymphocytes 14.1 % 20.0 - 40.0 06/02/2014 [facility] Monocytes 9.3 % 2.0 - 12.0 06/02/2014 [facility] MPV 8.5 fL 7.4 - 10.4 06/02/2014 [facility] WBC 12.3 K/CMM 3.7 - 10.4 06/02/2014 [facility] Hgb 14.0 g/dL 12.0 - 16.0 06/02/2014 [facility] Hct 41.8 % 36.0 - 48.0 06/02/2014 [facility] RBC 4.39 M/CMM 4.20 - 5.40 06/02/2014 [facility] MCHC 33.6 g/dL 32.0 - 36.0 06/02/2014 [facility] RDW 14.0 % 11.5 - 14.5 06/02/2014 [facility] Platelet 253 K/CMM 133 - 450 06/02/2014 [facility] MCV 95.0 fL 80.0 - 98.0 06/02/2014 [facility] MCH 31.9 pg 27.0 - 31.0 06/02/2014 [facility] THYROID PANEL TSH 1.090 uIU/mL 0.360 - 3.740 06/02/2014 [facility] TOXICOLOGY Etoh (%) null 06/02/2014 4Interpretive Data: Ethanol testing results should be used for medical purposes only. Negative Range: <0.003% Toxic Range: >0.25% [facility] TOXICOLOGY Ethanol Lvl null 06/02/2014 5Interpretive Data: Negative Range: <3 mg/dL Toxic Range: >250 mg/dL [facility] Hip wo contrast CT Hip wo contrast CT CT LEFT HIP WITHOUT CONTRAST INDICATION: Sprain COMPARISON: Left hip radiograph 06/01/2014 IMPRESSION: 1. There is deformity of the head of the left femur that is probably partially chronic. There appear to be changes of advanced avascular necrosis. There is a lucent line of the superomedial aspect of the femoral head that may be traumatic in etiology. Two bony fragments are noted within the joint space. There is mild superior subluxation of the femoral head. 2. There is joint effusion and soft tissue swelling about the left hip. SL: 06/02/2014 - - Read by: Nhan Peterson MD Dictated Date/time: 06/02/14 02:30 Electronically Signed by: Nhan Peterson MD 06/02/14 02:39 FINAL REPORT [facility] Brain wo contrast CT Brain wo contrast CT CT BRAIN WITHOUT CONTRAST INDICATION: Acute cognitive change COMPARISON: None FINDINGS: There is no evidence of acute vascular insults, space occupying lesions, hemorrhage, hydrocephalus, midline shift, or extra-axial collections. The calvarium is intact. IMPRESSION: No acute intracranial abnormalities are visualized. SL: 06/01/2014 - - Read by: Nhan Peterson MD Dictated Date/time: 06/01/14 23:16 Electronically Signed by: Nhan Peterson MD 06/01/14 23:17 FINAL REPORT [facility] Hip 2 views DX Hip 2 views DX PELVIS RADIOGRAPH AP VIEW, LEFT HIP RADIOGRAPH 2 VIEWS INDICATION: Trauma COMPARISON: Pelvis radiograph 02/23/2014 IMPRESSION: There is advanced degenerative arthrosis of the left hip, associated deformity of the femoral head. Compared to the prior radiograph, deformity of the femoral head has progressed. This appearance could potentially be secondary to a fracture, not well seen. Consider noncontrast CT of the left hip for further evaluation. Otherwise, no acute fractures or dislocations are visualized. SL: 06/01/2014 - - Read by: Nhan Peterson MD Dictated Date/time: 06/01/14 22:56 Electronically Signed by: Nhan Peterson MD 06/01/14 22:58 FINAL REPORT [facility] Pelvis AP DX Pelvis AP DX PELVIS RADIOGRAPH AP VIEW, LEFT HIP RADIOGRAPH 2 VIEWS INDICATION: Trauma COMPARISON: Pelvis radiograph 02/23/2014 IMPRESSION: There is advanced degenerative arthrosis of the left hip, associated deformity of the femoral head. Compared to the prior radiograph, deformity of the femoral head has progressed. This appearance could potentially be secondary to a fracture, not well seen. Consider noncontrast CT of the left hip for further evaluation. Otherwise, no acute fractures or dislocations are visualized. SL: 06/01/2014 - - Read by: Nahn Peterson MD Dictated Date/time: 06/01/14 22:56 Electronically Signed by: Nhan Peterson MD 06/01/14 22:58 FINAL REPORT [facility] Pelvis AP Pelvis AP AP PELVIS HX: Limitation of movement FINDINGS: Examination of pelvis in AP projection reveals findings of avascular necrosis of the femoral head on the left with flattening of the articular surface, some collapse and articular irregularity. There is mild narrowing of the hip joint on the left. Findings are similar to previous examination (x-ray and MR) dated 11/05/2013.. Bone mineral density is generally within normal limits. The visualized pelvic bowel gas pattern is unremarkable. There is no evidence of radiopaque foreign body. Incidentally noted is degenerative spondylosis and arthropathy at the lumbosacral junction. IMPRESSION: 1. Findings of avascular necrosis of the femoral head on the left, similar to previous examination of 11/05/2013. 2. 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 SL: 12 02/23/2014 - - Read by: Jaime Schmitt MD Dictated Date/time: 02/23/14 06:15 Electronically Signed by: Jaime Schmitt MD 02/23/14 06:18 FINAL REPORT [facility] CHEM PANEL eGFR 96 mL/min/1.73m2 11/06/2013 1Result Comment: The eGFR is calculated using [...] from the National Kidney Disease Education Program (NKDEP) which additionally recommends that when the eGFR is used in patients with extremes of body mass index for purposes of drug dosing, the eGFR should be multiplied by the estimated BMI. [facility] CHEM PANEL BUN 7 mg/dL 7 - 11/06/2013 [facility] CHEM PANEL Glucose Lvl 97 mg/dL 70 - 99 11/06/2013 3Interpretive Data: Adult reference range values reflect the clinical guidelines of the [place] [employer]. [facility] CHEM PANEL Creatinine Lvl 0.7 mg/dL 0.5 - 1.4 11/06/2013 [facility] CHEM PANEL CO2 29 meq/L 24 - 32 11/06/2013 [facility] CHEM PANEL Calcium Lvl 9.0 mg/dL 8.5 - 10.5 11/06/2013 [facility] CHEM PANEL Sodium Lvl 139 meq/L 135 - 145 11/06/2013 [facility] CHEM PANEL Chloride Lvl 104 meq/L 95 - 109 11/06/2013 [facility] CHEM PANEL Potassium Lvl 4.0 meq/L 3.5 - 5.1 11/06/2013 [facility] CHEM PANEL AGAP 10.0 meq/L 10.0 - 20.0 11/06/2013 [facility] HEMATOLOGY Hgb 11.7 g/dL 12.0 - 16.0 11/06/2013 [facility] HEMATOLOGY WBC 7.0 K/CMM 3.7 - 10.4 11/06/2013 [facility] Hct 35.8 % 36.0 - 48.0 11/06/2013 [facility] RBC 3.63 M/CMM 4.20 - 5.40 11/06/2013 [facility] HEMATOLOGY MCV 98.6 fL 81.0 - 99.0 11/06/2013 [facility] MCH 32.3 pg 27.0 - 31.0 11/06/2013 [facility] HEMATOLOGY Platelet 276 K/CMM 133 - 450 11/06/2013 [facility] MCHC 32.8 g/dL 32.0 - 36.0 11/06/2013 [facility] HEMATOLOGY RDW 12.5 % 11.5 - 14.5 11/06/2013 [facility] MPV 8.1 fL 7.4 - 10.4 11/06/2013 [facility] HEMATOLOGY Sed Rate 27 mm/h 0 - 20 11/06/2013 [facility] HEMATOLOGY Monocytes # 0.7 K/CMM 0.0 - 0.8 11/06/2013 [facility] HEMATOLOGY Eosinophils # 0.3 K/CMM 0.0 - 0.5 11/06/2013 [facility] HEMATOLOGY Lymphocytes # 2.7 K/CMM 1.0 - 5.5 11/06/2013 [facility] HEMATOLOGY Segs 46.1 % 45.0 - 75.0 11/06/2013 [facility] HEMATOLOGY Lymphocytes 38.2 % 20.0 - 40.0 11/06/2013 [facility] HEMATOLOGY Basophils 0.5 % 0.0 - 1.0 11/06/2013 [facility] HEMATOLOGY Segs-Bands # 3.2 K/CMM 1.5 - 8.1 11/06/2013 [facility] HEMATOLOGY Eosinophils 4.9 % 0.0 - 4.0 11/06/2013 [facility] HEMATOLOGY Monocytes 10.3 % 2.0 - 12.0 11/06/2013 [facility] CHEM PANEL eGFR 82 mL/min/1.73m2 11/05/2013 2Result Comment: The eGFR is calculated using [...] from the National Kidney Disease Education Program (NKDEP) which additionally recommends that when the eGFR is used in patients with extremes of body mass index for purposes of drug dosing, the eGFR should be multiplied by the estimated BMI. [facility] CHEM PANEL Creatinine Lvl 0.8 mg/dL 0.5 - 1.4 11/05/2013 [facility] CHEM PANEL BUN 6 mg/dL 7 - 22 11/05/2013 [facility] CHEM PANEL Glucose Lvl 116 mg/dL 70 - 99 11/05/2013 4Interpretive Data: Adult reference range values reflect the clinical guidelines of the [place] [employer]. [facility] CHEM PANEL Sodium Lvl 143 meq/L 135 - 145 11/05/2013 [facility] CHEM PANEL Chloride Lvl 111 meq/L 95 - 109 11/05/2013 [facility] CHEM PANEL Potassium Lvl 3.9 meq/L 3.5 - 5.1 11/05/2013 [facility] CHEM PANEL Calcium Lvl 9.1 mg/dL 8.5 - 10.5 11/05/2013 [facility] CHEM PANEL CO2 27 meq/L 24 - 32 11/05/2013 [facility] CHEM PANEL AGAP 8.9 meq/L 10.0 - 20.0 11/05/2013 [facility] HEMATOLOGY MCV 97.6 fL 81.0 - 99.0 11/05/2013 [facility] HEMATOLOGY MCH 32.7 pg 27.0 - 31.0 11/05/2013 [facility] MCHC 33.5 g/dL 32.0 - 36.0 11/05/2013 [facility] RDW 12.6 % 11.5 - 14.5 11/05/2013 [facility] MPV 8.1 fL 7.4 - 10.4 11/05/2013 [facility] Platelet 288 K/CMM 133 - 450 11/05/2013 [facility] WBC 8.5 K/CMM 3.7 - 10.4 11/05/2013 [facility] Hgb 12.7 g/dL 12.0 - 16.0 11/05/2013 [facility] RBC 3.88 M/CMM 4.20 - 5.40 11/05/2013 [facility] Hct 37.9 % 36.0 - 48.0 11/05/2013 [facility] INR 1.04 0.85 - 1.17 11/05/2013 5Interpretive Data: RECOMMENDED RANGES FOR PROTIME INR: 2.0-3.0 for most medical and surgical thromboembolic states. 2.5-3.5 for artificial heart valves and recurrent embolism. INR SHOULD BE USED ONLY FOR PATIENTS ON STABLE ANTICOAGULANT THERAPY. [facility] PTT 29.7 s 22.9 - 35.8 11/05/2013 6Interpretive Data: Heparin Therapeutic Range: 57 - 92 Seconds [facility] PT 13.5 s 12.0 - 14.7 11/05/2013 [facility] Lymphocytes 26.3 % 20.0 - 40.0 11/05/2013 [facility] Segs 60.2 % 45.0 - 75.0 11/05/2013 [facility] Lymphocytes # 2.2 K/CMM 1.0 - 5.5 11/05/2013 [facility] Monocytes # 0.8 K/CMM 0.0 - 0.8 11/05/2013 [facility] Segs-Bands # 5.1 K/CMM 1.5 - 8.1 11/05/2013 [facility] Basophils 0.6 % 0.0 - 1.0 11/05/2013 [facility] Basophils # 0.1 K/CMM 0.0 - 0.2 11/05/2013 [facility] Eosinophils # 0.3 K/CMM 0.0 - 0.5 11/05/2013 [facility] Eosinophils 3.9 % 0.0 - 4.0 11/05/2013 [facility] HEMATOLOGY Monocytes 9.0 % 2.0 - 12.0 11/05/2013 [facility] IMMUNOLOGY C-REACTIVE PROTEIN 35.6 mg/L <=2.9 mg/L 11/05/2013 [facility] Vital Signs Vital Sign Value Date Comments Source Temperature Oral (F) 98.2 F 07/31/2015 [facility] Heart Rate 74 07/31/2015 [facility] Systolic (mm Hg) 104 07/31/2015 [facility] Diastolic (mm Hg) 66 07/31/2015 [facility] Respitory Rate 16 07/31/2015 [facility] Respitory Rate 16 07/31/2015 [facility] Temperature Oral (F) 97.8 F 07/31/2015 [facility] Heart Rate 72 07/31/2015 [facility] Systolic (mm Hg) 107 07/31/2015 [facility] Diastolic (mm Hg) 71 07/31/2015 [facility] Heart Rate 72 07/31/2015 [facility] Temperature Oral (F) 98.0 F 07/31/2015 [facility] Systolic (mm Hg) 113 07/31/2015 [facility] Diastolic (mm Hg) 70 07/31/2015 [facility] Respitory Rate 16 07/31/2015 [facility] BMI Calculated 20.6 07/29/2015 [facility] Weight 49.5 07/29/2015 [facility] Height 155 cm 07/29/2015 [facility] Weight 49.545 07/29/2015 [facility] BMI Calculated 20.64 07/29/2015 [facility] Height 154.94 cm 07/29/2015 [facility] Temperature Oral (F) 98.2 F 07/24/2015 [facility] Systolic (mm Hg) 116 07/24/2015 [facility] Diastolic (mm Hg) 82 07/24/2015 [facility] Heart Rate 84 07/24/2015 [facility] Respitory Rate 18 07/24/2015 [facility] Heart Rate 86 07/24/2015 [facility] Respitory Rate 18 07/24/2015 [facility] Temperature Oral (F) 98.2 F 07/24/2015 [facility] Systolic (mm Hg) 118 07/24/2015 [facility] Diastolic (mm Hg) 84 07/24/2015 [facility] Systolic (mm Hg) 120 07/24/2015 [facility] Diastolic (mm Hg) 82 07/24/2015 [facility] Temperature Oral (F) 98 F 07/24/2015 [facility] Heart Rate 86 07/24/2015 [facility] Respitory Rate 18 07/24/2015 [facility] Weight 50 07/24/2015 [facility] BMI Calculated 20.83 07/24/2015 [facility] Height 154.94 cm 07/24/2015 [facility] Diastolic (mm Hg) 67 06/02/2014 [facility] Systolic (mm Hg) 112 06/02/2014 [facility] Heart Rate 98 06/02/2014 [facility] Respitory Rate 20 06/02/2014 [facility] Temperature Oral (F) 97.5 F 06/02/2014 [facility] Temperature Oral (F) 98.4 F 06/02/2014 [facility] Diastolic (mm Hg) 67 06/02/2014 [facility] Systolic (mm Hg) 107 06/02/2014 [facility] Heart Rate 102 06/02/2014 [facility] Respitory Rate 18 06/02/2014 [facility] Systolic (mm Hg) 115 06/02/2014 [facility] Diastolic (mm Hg) 69 06/02/2014 [facility] Heart Rate 102 06/02/2014 [facility] Respitory Rate 18 06/02/2014 [facility] Temperature Oral (F) 98.5 F 06/02/2014 [facility] Weight 58.182 06/02/2014 [facility] Height 154.94 cm 06/02/2014 [facility] BMI Calculated 24.24 06/02/2014 [facility] Diastolic (mm Hg) 34 02/23/2014 [facility] Systolic (mm Hg) 120 02/23/2014 [facility] Respitory Rate 18 02/23/2014 [facility] Heart Rate 86 02/23/2014 [facility] Temperature Oral (F) 98.5 F 02/23/2014 [facility] Height 162.56 cm 02/23/2014 [facility] BMI Calculated 22.36 02/23/2014 [facility] Weight 59.091 02/23/2014 [facility] Systolic (mm Hg) 116 02/23/2014 [facility] Diastolic (mm Hg) 82 02/23/2014 [facility] Heart Rate 93 02/23/2014 [facility] Temperature Oral (F) 98.4 F 02/23/2014 [facility] Respitory Rate 20 02/23/2014 [facility] Diastolic (mm Hg) 65 12/21/2013 [facility] Systolic (mm Hg) 132 12/21/2013 [facility] Respitory Rate 18 12/21/2013 [facility] Heart Rate 88 12/21/2013 [facility] Temperature Oral (F) 98.3 F 12/21/2013 [facility] Weight 56.818 12/21/2013 [facility] Diastolic (mm Hg) 75 12/21/2013 [facility] Heart Rate 90 12/21/2013 [facility] Temperature Oral (F) 98.3 F 12/21/2013 [facility] Respitory Rate 22 12/21/2013 [facility] Systolic (mm Hg) 128 12/21/2013 [facility] Diastolic (mm Hg) 72 11/27/2013 [facility] Respitory Rate 16 11/27/2013 [facility] Systolic (mm Hg) 122 11/27/2013 [facility] Heart Rate 90 11/27/2013 [facility] Diastolic (mm Hg) 71 11/26/2013 [facility] Systolic (mm Hg) 120 11/26/2013 [facility] Temperature Oral (F) 98.7 F 11/26/2013 [facility] Heart Rate 96 11/26/2013 [facility] Respitory Rate 16 11/26/2013 [facility] Weight 59.091 11/26/2013 [facility] BMI Calculated 21.68 11/26/2013 [facility] Height 165.1 cm 11/26/2013 [facility] Systolic (mm Hg) 128 11/26/2013 [facility] Respitory Rate 18 11/26/2013 [facility] Temperature Oral (F) 98.7 F 11/26/2013 [facility] Heart Rate 108 11/26/2013 [facility] Diastolic (mm Hg) 82 11/26/2013 [facility] Systolic (mm Hg) 104 11/09/2013 [facility] Diastolic (mm Hg) 70 11/09/2013 [facility] Respitory Rate 18 11/09/2013 [facility] Temperature Oral (F) 97.5 F 11/09/2013 [facility] Heart Rate 73 11/09/2013 [facility] Diastolic (mm Hg) 56 11/09/2013 [facility] Systolic (mm Hg) 95 11/09/2013 [facility] Respitory Rate 16 11/09/2013 [facility] Temperature Oral (F) 97.9 F 11/09/2013 [facility] Heart Rate 73 11/09/2013 [facility] Systolic (mm Hg) 99 11/09/2013 [facility] Heart Rate 73 11/09/2013 [facility] Respitory Rate 14 11/09/2013 [facility] Temperature Oral (F) 97.7 F 11/09/2013 [facility] Diastolic (mm Hg) 59 11/09/2013 [facility] Weight 62.727 11/05/2013 [facility] Height 154.94 cm 11/05/2013 [facility] BMI Calculated 26.13 11/05/2013 [facility] Encounters Location Location Details Encounter Type Encounter Number Reason For Visit Attending Provider ADM Date DC Date Status Source [facility] Inpatient [id number] Daniele Teqwimuah 11/05/2013 11/09/2013 [facility] [id number] Jordan Jennifer 11/26/2013 11/27/2013 [facility] [id number] Alex Connelly 12/21/2013 12/21/2013 [facility] [id number] Venancio Hodge 02/23/2014 02/23/2014 [facility] [id number] Venancio Hodge 06/02/2014 06/02/2014 [facility] [id number] Jennifer Garcia 07/24/2015 07/24/2015 [facility] Inpatient [id number] Clifford Cervantes 07/29/2015 07/31/2015 [facility] Procedures Procedure Code Date Perfomer Comments Source
[2018-03-20] MEDS ORDERED: ONDANSETRON HCL 4 MG ORAL DISINTEGRATING TAB PO NR (16:30)
[2018-03-20 17:18] LABS: BASOPHILS % 0.4 % (0.0-1.0); EOSINOPHILS # (AUTO) 0.1 (0.0-0.4); EOSINOPHILS % 0.7 % (0.0-6.0); HEMATOCRIT 52.7 % (34.2-44.1); HEMOGLOBIN 18.2 g/dL (12.0-16.0); LYMPHOCYTES % 22.7 % (18.0-39.1); MEAN CORPUSCULAR HEMOGLOBIN 33.3 pg (28-32); MEAN CORPUSCULAR HGB CONC 34.5 g/dL (31-35); MEAN CORPUSCULAR VOLUME 96.3 fL (81-99); MONOCYTES # (AUTO) 0.9 (0.2-0.8); MONOCYTES % 9.8 % (4.4-11.3); NEUTROPHILS # (AUTO) 5.9 (2.1-6.9); NEUTROPHILS % 65.6 % (38.7-80.0); PLATELET COUNT 181 x10e3/uL (140-360); RED BLOOD COUNT 5.47 x10e6/uL (3.6-5.1); RED CELL DISTRIBUTION WIDTH 12.5 % (11.7-14.4)
[2018-03-20 17:49] LABS: ALANINE AMINOTRANSFERASE 49 IU/L (0-55); ALBUMIN 4.2 g/dL (3.5-5.0); ALBUMIN/GLOBULIN RATIO 1.2 (0.8-2.0); ALKALINE PHOSPHATASE 99 IU/L (40-150); AMYLASE 40 U/L (25-125); ANION GAP 20.9 mmol/L (8-16); BLOOD UREA NITROGEN 7 mg/dL (7-26); BUN/CREATININE RATIO 8 (6-25); CALCIUM 9.7 mg/dL (8.4-10.2); CARBON DIOXIDE 21 mmol/L (22-29); CHLORIDE 100 mmol/L (98-107); CREATININE, SERUM 0.86 mg/dL (0.57-1.11); EST GLOMERULAR FILTRATION RATE > 60 ML/MIN (60-); GLUCOSE 85 mg/dL (74-118); LIPASE 22 U/L (8-78); MAGNESIUM 2.4 MG/DL (1.3-2.1); SODIUM 139 mmol/L (136-145)
[2018-03-20 17:59] LABS: POTASSIUM 2.9 mmol/L (3.5-5.1)
[2018-03-20] MEDS ORDERED: POTASSIUM CHLORIDE 20 MEQ TAB CR PO NR (18:08)
[2018-03-20] MEDS ORDERED: POTASSIUM CHLORIDE 20MEQ/100ML 100 ML IV ONE (18:15)
[2018-03-20] MEDS ORDERED: SODIUM CHLORIDE 0.9% 1000ML 1,000 ML ONE (19:20)
[2018-03-20 23:05] LABS: BILIRUBIN,URINE 2+ (NEGATIVE); CLARITY,URINE SL CLOUDY (CLEAR); COLOR,URINE YELLOW (YELLOW); KETONES,URINE 2+ (NEGATIVE); LEUKOCYTE ESTERASE ,URINE 1+ (NEGATIVE); NITRITE,URINE NEGATIVE (NEGATIVE); PROTEIN,URINE DIPSTICK TRACE (NEGATIVE); URINE UROBILINOGEN 0.2 mg/dL (0.2 - 1)
[2018-03-20 23:06] LABS: BACTERIA,URINE MANY /HPF; EPITHELIAL CELLS,URINE MODERATE /LPF; RBC,URINE 0-5 /HPF (0-5)
[2018-03-20] MEDS ORDERED: HYOSCYAMINE SULFATE 0.5 MG/ML INJ IV ONE (23:15)
[2018-03-20] MEDS ORDERED: CEFTRIAXONE SOD 1 GM VIAL IM ONE (23:15)
[2018-03-21 00:35] VITALS: BP 134/95
== END 2018-03-21 00:50 | disposition home or self-care (01) ==
LOC: ER 15:39
DX: R10.84 Generalized abdominal pain (principal); R19.7 Diarrhea, unspecified; E87.6 Hypokalemia; N30.90 Cystitis, unspecified without hematuria; K52.9 Noninfective gastroenteritis and colitis, unspecified
CPT/HCPCS: 36415; 80053; 81001; 82150; 83690; 83735; 84132; 85025; 93005; 99284; J0696; J1980; J3480; J7030; Q0162